=== PATIENT | female | born 1955 | race Caucasian/White ===

== ENCOUNTER → 2016-08-07 | Outpatient (CLI) | payer BC ==
--- NOTE | 2016-08-07 11:45 | REP ---
Clinical: Pelvic pain. Technique: Transabdominal pelvic ultrasound followed by transvaginal examination for better evaluation of the adnexa. Findings: History of prior hysterectomy and possibly oophorectomy. Uterus and ovaries not visualized. No pelvic fluid, collection or mass lesion. Bladder is unremarkable and measures 7.7 x 7.0 x 5.1 cm Impression: No pelvic fluid, collection or mass lesion. Evidence for prior hysterectomy and likely oophorectomy. Signed by Patrick Ibarra MD 08/07/2016 11:37 A
== END ==
LOC: M RAD 09:42
PROVIDERS: ATTEND Nurse Practitioner Adult Health
DX: N89.8 Other specified noninflammatory disorders of vagina (principal); R10.2 Pelvic and perineal pain

== ENCOUNTER → 2017-01-16 | Outpatient (CLI) | payer OTHER ==
--- NOTE | 2017-01-16 09:21 | REP ---
BILATERAL DIGITAL SCREENING MAMMOGRAM: 01/16/2017 CLINICAL HISTORY: New baseline mammogram, prior over 10 years old. She has no current complaint, personal or family history of breast cancer. FINDINGS: Standard two-view mammography performed. The breast parenchyma show only a few scattered fibroglandular elements and are largely fatty replaced. In the 6-o'clock position of the right breast is a slightly irregular shaped nodule, about 5 mm. There are no abnormal calcifications. There are no other significant findings, dominant mass, architectural distortion, clustered microcalcification, skin thickening or other secondary signs of malignancy. IMPRESSION: BIRADS ACR category 0, incomplete, needs additional imaging evaluation. I would recommend spot magnification right CC and true MLO views of the small nodular tissue focus 6 o'clock position right breast and ultrasound should be scheduled. Any other imaging should be performed at the discretion of the reviewing radiologist. A. Negative x-ray reports should not delay biopsy if a dominant or clinically suspicious mass is present. B. Four to eight percent of cancers are not identified by x-ray. C. Adenosis and dense breasts may obscure an underlying neoplasm. The patient states that she/he has not had a clinical breast exam in over a year. The patient letter being requested is M0 BI-RADS/ACR category 0 mammogram, incomplete. Additional imaging and/or prior images are needed before a final assessment can be assigned. This mammogram was interpreted with the aid of an FDA-approved computer-aided detection system.
== END ==
LOC: M WHC 08:13
PROVIDERS: ATTEND Family Medicine
DX: R92.2 Inconclusive mammogram (principal)

== ENCOUNTER → 2017-01-18 | Outpatient (CLI) | payer BC, OTHER ==
--- NOTE | 2017-01-18 20:47 | REP ---
Left breast ultrasound: 01/18/2017 Comparison diagnostic digital mammogram 01/18/2017, screening mammogram 01/16/2017. Clinical history: Neodensity approximately 6-o'clock position right breast on screening mammogram. Sonographic evaluation of the right breast in the 5-o'clock to 7-o'clock position as requested shows underlying heterogeneous echogenic fatty parenchyma. The 6-o'clock position demonstrates a small irregularly shaped hypoechoic focus of 5 x 2 x 5 mm; showed no color flow within it. There are no other findings. Impression: 1. There is a small cyst or partially dilated duct without filling defect 6 o'clock position right breast corresponding to the ultrasound finding. Please see mammogram report this date for final assessment and recommendation. Signed by Nitesh Mejia MD 01/18/2017 10:36 P
--- NOTE | 2017-01-18 20:49 | REP ---
DIGITAL DIAGNOSTIC RIGHT MAMMOGRAM: 01/18/2017. Comparison: Right breast ultrasound today, screening mammogram 01/16/2017. Clinical history: Neodensity 6-o'clock position right breast. Findings: Spot magnified CC, MLO and true lateral views for a total of four views are provided. At the 6 o'clock position a vague slightly irregular nodule is noted about 5.3 mm. It does not have any associated calcifications. There are no other findings. The breast ultrasound showed a 5.2 x 5.1 x 2 mm irregular shaped cyst or dilated duct, but without filling defects. It is 2.8 cm posterior to the nipple by ultrasound. Impression: 1. BIRADS ACR category 2, benign. Benign finding, with ultrasound confirming that the isolated density on mammography is a cyst or short dilated duct without filling defect. I do not see evidence of malignancy. 2. Recommend followup annual mammography 1 year. BI-RADS/ACR category 2 mammogram. Benign finding(s). Routine annual screening mammography (for women over age 40). This mammogram was interpreted with the aid of an FDA-approved computer-aided detection system. A. Negative x-ray reports should not delay biopsy if a dominant or clinically suspicious mass is present. B. Four to eight percent of cancers are not identified by x-ray. C. Adenosis and dense breasts may obscure an underlying neoplasm The patient states she/he has not had a clinical breast exam in over a year. The patient letter being requested is M1. Signed by Nitesh Mejia MD 01/18/2017 10:37 P
== END ==
LOC: M RAD 13:53
PROVIDERS: ATTEND Family Medicine
DX: R92.8 Other abnormal and inconclusive findings on diagnostic imaging of breast (principal)
CPT/HCPCS: 76642; G0206

== ENCOUNTER → 2017-07-12 | Outpatient (CLI) | payer OTHER | LOC: M EKG 10:54 | DX: Z01.810 Encounter for preprocedural cardiovascular examination (principal); R00.1 Bradycardia, unspecified; I49.9 Cardiac arrhythmia, unspecified; I10 Essential (primary) hypertension; M23.231 Derangement of other medial meniscus due to old tear or injury, right knee | CPT/HCPCS: 93005 ==

== ENCOUNTER → 2017-07-16 | Outpatient (REF) | payer OTHER ==
[2017-07-16 12:54] LABS: ALBUMIN 3.8 GM/DL (3.2-5.2); ALBUMIN/GLOBULIN RATIO 1.23 (1.00-1.93); ALKALINE PHOSPHATASE 110 U/L (45-117); ALT/SGPT 23 U/L (12-78); ANION GAP 7 MEQ/L (8-16); AST/SGOT 20 U/L (7-37); BILIRUBIN,TOTAL 0.3 MG/DL (0.2-1.0); BLOOD UREA NITROGEN 22 MG/DL (7-18); CARBON DIOXIDE LEVEL 27 MEQ/L (21-32); CHLORIDE LEVEL 108 MEQ/L (98-107); CREATININE FOR GFR 0.94 MG/DL (0.55-1.30); GLOMERULAR FILTRATION RATE > 60.0 (>45); GLUCOSE, FASTING 95 MG/DL (70-100); POTASSIUM SERUM 4.5 MEQ/L (3.5-5.1); SODIUM LEVEL 142 MEQ/L (136-145); TOTAL 25(OH) VITAMIN D 31.2 NG/ML (30.0-100.0); TOTAL PROTEIN 6.9 GM/DL (6.4-8.2)
== END ==
LOC: M SFHCPLAZ 08:41
DX: M05.79 Rheumatoid arthritis with rheumatoid factor of multiple sites without organ or systems involvement (principal); I10 Essential (primary) hypertension; E55.9 Vitamin D deficiency, unspecified

== ENCOUNTER → 2018-04-10 | Outpatient (CLI) | payer MEDICARE ==
[2018-04-10 11:33] LABS: ANION GAP 6 MEQ/L (8-16); BLOOD UREA NITROGEN 33 MG/DL (7-18); CARBON DIOXIDE LEVEL 29 MEQ/L (21-32); CHLORIDE LEVEL 106 MEQ/L (98-107); CREATININE FOR GFR 1.17 MG/DL (0.55-1.30); GLOMERULAR FILTRATION RATE 49.6 (>45); GLUCOSE, FASTING 92 MG/DL (70-100); POTASSIUM SERUM 4.6 MEQ/L (3.5-5.1); SODIUM LEVEL 141 MEQ/L (136-145)
== END ==
LOC: M LAB 10:20
DX: Z01.818 Encounter for other preprocedural examination (principal); G56.02 Carpal tunnel syndrome, left upper limb
CPT/HCPCS: 80048

== ENCOUNTER → 2018-08-08 | Outpatient (REF) | payer OTHER ==
[2018-08-08 16:34] LABS: CALCIUM LEVEL 8.9 MG/DL (8.8-10.2); CREATININE FOR GFR 1.03 MG/DL (0.55-1.30); GLOMERULAR FILTRATION RATE 57.4 (>45); POTASSIUM SERUM 4.2 MEQ/L (3.5-5.1)
[2018-08-08 16:43] LABS: TOTAL 25(OH) VITAMIN D 34.8 NG/ML (30.0-100.0)
[2018-08-08 16:48] LABS: MALB URINE SIEMENS 16.6 MG/L; MAU/CREAT RATIO 10.7 MCG/MG (0.0-30.0)
== END ==
LOC: M SFHCPLAZ 13:32
PROVIDERS: ATTEND Family Medicine
DX: I10 Essential (primary) hypertension (principal); E55.9 Vitamin D deficiency, unspecified

== ENCOUNTER → 2018-08-11 | Outpatient (CLI) | payer OTHER ==
--- NOTE | 2018-08-12 08:00 | REPMRS ---
Patient History The patient states she has not had a clinical breast exam in over a year. Family history of colorectal cancer at age 50 in mother. Digital Woman Screen Mammo: August 11, 2018 - Exam #: [id number] Bilateral CC and MLO view(s) were taken. Technologist: Sonia Varghese, Technologist Prior study comparison: January 18, 2017, right breast digital mammo diagnostic unilateral, performed at [facility]. January 16, 2017, digital woman screen mammo performed at [facility]. FINDINGS: The breast tissue is almost entirely fat. The previously noted 5 mm nodule corresponding to a cyst on ultrasound is again seen in the right breast unchanged. There are normal lymph nodes visible on the left. There has been no change in the appearance of the mammogram from the prior studies. There is no interval development of dominant mass, architectural distortion, or clustered microcalcification typical of malignancy. 3-D tomosynthesis shows no additional findings. Assessment: BI-RADS/ACR category 2 mammogram. Benign Findings. Recommendation Routine screening mammogram of both breasts in 1 year (for women over age 40). This patient's Lifetime Breast Cancer RIsk is estimated at 6.0 %. This mammogram was interpreted with the aid of an FDA-approved computer-aided dectection system. Electronically Signed By: Selvin Fuentes MD 08/12/18 [id number]
== END ==
LOC: M WHC 08:37
PROVIDERS: ATTEND Family Medicine
DX: Z12.31 Encounter for screening mammogram for malignant neoplasm of breast (principal); R92.8 Other abnormal and inconclusive findings on diagnostic imaging of breast

== ENCOUNTER → 2018-09-16 | Outpatient (CLI) | payer OTHER ==
[~2018-09-16] MED LIST: DULO1CAP3 PO; GABA600T4 PO; HYDR200T3 PO; LISI20TA3 PO; MELO15TA28 PO; VITA50005 PO
--- NOTE | 2018-09-16 15:46 | REP ---
Clinical: Primary osteoarthritis. Technique: AP, lateral, bilateral oblique views of the right and left hand. Findings: The right hand is essentially normal for age with focal advanced osteoarthritic change noted at the fifth distal interphalangeal joint. Findings include subchondral sclerosis and subtle cystic change along with joint space narrowing and gull-wing deformity with marginal spurring. The left hand demonstrates essentially age-related changes without significant focal osteoarthritic changes appreciated. Impression: Focal advanced osteoarthritic changes at the right fifth DIP joint. Otherwise symmetric relatively age-appropriate bilateral hand radiographs. Electronically Signed by Patrick Ibarra MD 09/16/2018 03:37 P
[2018-09-16 16:15] LABS: BASO # 0.1 10^3/uL (0.0-0.2); BASO % 1.1 % (0.0-1.0); EOS # 0.5 10^3/uL (0.0-0.50); HEMOGLOBIN 13.8 g/dl (12.0-15.5); LYMPH # 2.4 10^3/uL (1.5-4.5); LYMPH % 23.1 % (24.0-44.0); MEAN CORPUSCULAR HEMOGLOBIN 27.8 pg (27.0-33.0); MEAN CORPUSCULAR HGB CONC 32.1 g/dl (32.0-36.5); MEAN CORPUSCULAR VOLUME 86.5 fl (80.0-96.0); MONO # 1.1 10^3/uL (0.0-0.8); NEUTROPHILS # 6.1 10^3/uL (1.8-7.7); NEUTROPHILS % 59.4 % (36.0-66.0); PLATELET COUNT, AUTOMATED 312 10^3/uL (150-450); RED BLOOD COUNT 4.97 10^6/uL (4.00-5.40); WHITE BLOOD COUNT 10.3 10^3/uL (4.0-10.0)
[2018-09-16 16:16] LABS: ALBUMIN 3.9 GM/DL (3.2-5.2); BILIRUBIN,TOTAL 0.2 MG/DL (0.2-1.0); C REACTIVE PROTEIN QUANTITATIV 0.48 MG/DL (0.00-0.30); CALCIUM LEVEL 9.5 MG/DL (8.8-10.2); CREATININE FOR GFR 1.14 MG/DL (0.55-1.30); GLOMERULAR FILTRATION RATE 51.1 (>45); POTASSIUM SERUM 4.3 MEQ/L (3.5-5.1); TOTAL PROTEIN 7.3 GM/DL (6.4-8.2)
[2018-09-16 18:15] LABS: ERYTHROCYTE SEDIMENTATION RATE 6 mm/hr (0-30)
== END ==
LOC: M LAB 15:16
PROVIDERS: ATTEND Internal Medicine Rheumatology
DX: M06.9 Rheumatoid arthritis, unspecified (principal)

== ENCOUNTER → 2018-09-16 | Outpatient (REF) | payer OTHER | LOC: M SFHCPLAZ 14:39 | PROVIDERS: ATTEND Internal Medicine Rheumatology | DX: Z53.9 Procedure and treatment not carried out, unspecified reason (principal); M06.9 Rheumatoid arthritis, unspecified ==

== ENCOUNTER 2018-09-22 09:44 | Day surgery (SDC) | payer OTHER ==
[~2018-09-22] VITALS: Ht 152.4 cm; Wt 90.0 kg
[~2018-09-22 09:44] MED LIST changes: +NS 1,000 ML IV SCH
--- NOTE | 2018-09-22 11:25 | ROOR ---
Patient Name: Enid Weston Procedure Date: 09/22/2018 10:56 AM Date of : 1955 Age: 63 Room: [facility] Gender: Female Note Status: Finalized Procedure: Total Colonoscopy to Cecum + Biopsy Polypectomy + ileoscopy Indications: Colon cancer screening in patient at increased risk: Colorectal cancer in mother Providers: Darryl Vilchis MD Referring MD: Vianey Hendrix MD Requesting Provider: Medicines: Monitored Anesthesia Care Complications: No immediate complications. Procedure: Pre-Anesthesia Assessment: - The heart rate, respiratory rate, oxygen saturations, blood pressure, adequacy of pulmonary ventilation, and response to care were monitored throughout the procedure. The Colonoscope was introduced through the anus and advanced to the cecum, identified by appendiceal orifice and ileocecal valve. The colonoscopy was performed without difficulty. The patient tolerated the procedure well. The quality of the bowel preparation was excellent. Findings: The perianal and digital rectal examinations were normal. Non-bleeding internal hemorrhoids were found during retroflexion. The hemorrhoids were small and Grade I (internal hemorrhoids that do not prolapse). A small polyp was found at 10 cm proximal to the anus. The polyp was sessile. The polyp was removed with a jumbo cold forceps. Resection and retrieval were complete. The exam was otherwise without abnormality on direct and retroflexion views. The terminal ileum appeared normal. Impression: - Non-bleeding internal hemorrhoids. - One small polyp at 10 cm proximal to the anus, removed with a jumbo cold forceps. Resected and retrieved. - The examination was otherwise normal on direct and retroflexion views. - The examined portion of the ileum was normal. - The exam was otherwise normal to the cecum. Recommendation: - Patient has a contact number available for emergencies. The signs and symptoms of potential delayed complications were discussed with the patient. Return to normal activities tomorrow. Written discharge instructions were provided to the patient. - High fiber diet. - Discharge patient to home. - Continue present medications. - Await pathology results. - Telephone GI clinic for pathology results in 1 week. - Repeat colonoscopy in 5 years for surveillance based on pathology results. - Return to referring physician. - Check Portal Online for Path Results.([email or web address]) - The findings and recommendations were discussed with the patient's family. Darryl Vilchis MD Darryl Vilchis MD 09/22/2018 11:24:44 AM Electronically signed by Darryl Vilchis MD Number of Addenda: 0 Note Initiated On: 09/22/2018 10:56 AM Estimated Blood Loss: Estimated blood loss: none.
[2018-09-22 11:45] VITALS: BP 131/90
== END 2018-09-22 11:53 | disposition home or self-care (01) ==
LOC: M OPP 09:44
PROVIDERS: ATTEND Internal Medicine Gastroenterology
DX: K64.0 First degree hemorrhoids (principal); K63.5 Polyp of colon; Z12.11 Encounter for screening for malignant neoplasm of colon; Z80.0 Family history of malignant neoplasm of digestive organs

== ENCOUNTER → 2019-04-03 | Outpatient (REF) | payer MEDICARE, MEDICAID ==
[~2019-04-03] MED LIST changes: -DULO1CAP3 PO; +DULO1CAP6 PO; +LISI20TA20 PO; -LISI20TA3 PO; -NS 1,000 ML IV SCH
[2019-04-03 18:55] LABS: CALCIUM LEVEL 9.2 MG/DL (8.8-10.2); CREATININE FOR GFR 1.15 MG/DL (0.55-1.30); GLOMERULAR FILTRATION RATE 50.4 (>45); POTASSIUM SERUM 4.3 MEQ/L (3.5-5.1)
== END ==
LOC: M SFHCCLAY 10:55
PROVIDERS: ATTEND Family Medicine
DX: R94.4 Abnormal results of kidney function studies (principal)

== ENCOUNTER → 2019-06-22 | Outpatient (REF) | payer MEDICARE, MEDICAID ==
[2019-06-22 12:15] LABS: CALCIUM LEVEL 9.5 MG/DL (8.8-10.2); CREATININE FOR GFR 1.04 MG/DL (0.55-1.30); GLOMERULAR FILTRATION RATE 56.6 (>45); POTASSIUM SERUM 4.6 MEQ/L (3.5-5.1)
== END ==
LOC: M SFHCPLAZ 10:08
PROVIDERS: ATTEND Family Medicine
DX: I12.9 Hypertensive chronic kidney disease with stage 1 through stage 4 chronic kidney disease, or unspecified chronic kidney disease (principal); N18.3 Chronic kidney disease, stage 3 (moderate)
CPT/HCPCS: 36415; 80048; G0463

== ENCOUNTER → 2019-12-08 | Outpatient (CLI) | payer MEDICARE, MEDICAID ==
--- NOTE | 2019-12-08 15:03 | REPPI ---
REASON: Chronic cough. The latest prior for comparison is 10/05/2014. COMPARISON: No priors. FINDINGS: The superior mediastinal structures are midline. The cardiac silhouette is unremarkable in size, shape, and position. The diaphragmatic surfaces of the lungs are regular, and the costophrenic angles are clear. The pulmonary miranda are clear. The imaged osseous structures are intact. IMPRESSION: There is no acute cardiopulmonary disease. Since the patient is experiencing a chronic cough. CT examination of the chest is warranted. Electronically Signed by Aristides Davis DO 12/08/2019 05:27 P
== END ==
LOC: M PLAIMG 10:51
PROVIDERS: ATTEND Family Medicine
DX: R05 Cough (principal)
CPT/HCPCS: 36415; 71046; 80048; G0463

== ENCOUNTER → 2019-12-08 | Outpatient (REF) | payer MEDICARE, MEDICAID ==
[2019-12-08 14:30] LABS: CALCIUM LEVEL 9.1 MG/DL (8.8-10.2); CREATININE FOR GFR 1.09 MG/DL (0.55-1.30); GLOMERULAR FILTRATION RATE 53.6 (>45); POTASSIUM SERUM 4.1 MEQ/L (3.5-5.1)
== END ==
LOC: M SFHCPLAZ 10:50
PROVIDERS: ATTEND Family Medicine
DX: I12.9 Hypertensive chronic kidney disease with stage 1 through stage 4 chronic kidney disease, or unspecified chronic kidney disease (principal); N18.3 Chronic kidney disease, stage 3 (moderate)

== ENCOUNTER 2020-02-24 10:45 | Inpatient (IN) | payer MEDICARE, MEDICAID ==
[~2020-02-24] VITALS: Ht 152.4 cm; Wt 87.0 kg
[2020-03-09] MEDS ORDERED: VITA50005 (07:57)
[2020-03-23] VITALS (7 sets, daily range): BP systolic 129–138; BP diastolic 61–66
[2020-03-23] MEDS ORDERED: fentaNYL 100 MCG/2 ML INJECTION (J3010) IV SCH (06:00)
[2020-03-23] MEDS ORDERED: LR 1,000 ML IV ONE (07:00)
[2020-03-23] MEDS ORDERED: ceFAZolin SOD 2 GM in IV 1 EA IV ONE (07:00)
[2020-03-23] MEDS ORDERED: LIDOCAINE 2% 100MG/5ML SDV (FOR ANES.) As Ordered ONE (09:02)
[2020-03-23] MEDS ORDERED: ePHEDrine INJ 50 MG/ML VIAL As Ordered ONE (09:02)
[2020-03-23] MEDS ORDERED: propofoL 500 MG/50 ML VIAL As Ordered ONE ×2 (09:02→09:03)
[2020-03-23] MEDS ORDERED: KETAMINE HCL 200 MG/20 ML VIAL As Ordered ONE (09:03)
[2020-03-23] MEDS ORDERED: MIDAZOLAM INJ 2MG/2ML VIAL (J2250 PER 1MG) As Ordered ONE ×2 (09:03→09:04)
[2020-03-23] MEDS ORDERED: ONDANSETRON 4MG/2ML VIAL As Ordered ONE (09:03)
[2020-03-23] MEDS ORDERED: fentaNYL 100 MCG/2 ML INJECTION (J3010) As Ordered ONE (09:04)
[2020-03-23] MEDS ORDERED: ceFAZolin 1GM VIAL (J0690 PER 500MG) As Ordered ONE (09:23)
[2020-03-23] MEDS ORDERED: TRANEXAMIC ACID 100 MG/ML 10ML VIAL As Ordered ONE (09:23)
[2020-03-23] MEDS ORDERED: EPINEPHrine INJ 1 MG/ML 1ML AMP As Ordered ONE (09:24)
[2020-03-23] MEDS ORDERED: BUPIVACAINE LIPOSOME/PF 1.3% 20ML VIAL (13.3MG/ML)(EXPAREL)(C9290 PER1MG) As Ordered ONE (09:24)
[2020-03-23] MEDS: MIDAZOLAM INJ 2MG/2ML VIAL (J2250 PER 1MG) IV SCH ×2 (09:28→09:32)
[2020-03-23] MEDS ORDERED: dexameTHASONE 10MG/1ML VIAL PRES.FREE (J1100 PER 1MG) ONE (11:10)
[2020-03-23] MEDS ORDERED: LIDOCAINE 1% MDV 20ML VIAL ONE (11:10)
[2020-03-23] MEDS ORDERED: ROPIvacaine 0.5% 30ML INJECTION (J2795 PER 1MG) ONE (11:10)
[2020-03-23] MEDS ORDERED: oxyCODONE 5MG TAB As Ordered ONE (12:03)
[2020-03-23] MEDS: fentaNYL 100 MCG/2 ML INJECTION (J3010) IV PRN ×4 (12:05→12:25)
[2020-03-23] MEDS ORDERED: ONDANSETRON 4MG/2ML VIAL IV PRN ×2 (12:15→12:30)
[2020-03-23] MEDS ORDERED: LR 1,000 ML IV SCH ×2 (12:15→12:30)
[2020-03-23] MEDS ORDERED: MORPHINE 2 MG/ML 1ML VIAL (J2270) IV PRN (12:30)
[2020-03-23] MEDS ORDERED: oxyCODONE 5MG TAB PO PRN (12:30)
[2020-03-23] MEDS ORDERED: MORPHINE 4 MG/ML 1ML VIAL/SYRINGE (J2270) IV PRN (12:30)
[2020-03-23 14:30] LABS: HEMOGLOBIN 12.2 g/dl (12.0-15.5); MEAN CORPUSCULAR HEMOGLOBIN 27.9 pg (27.0-33.0); MEAN CORPUSCULAR HGB CONC 31.3 g/dl (32.0-36.5); MEAN CORPUSCULAR VOLUME 89.2 fl (80.0-96.0); PLATELET COUNT, AUTOMATED 247 10^3/uL (150-450); RED BLOOD COUNT 4.37 10^6/uL (4.00-5.40); WHITE BLOOD COUNT 9.6 10^3/uL (4.0-10.0)
[2020-03-23 14:54] LABS: ALBUMIN 3.1 GM/DL (3.2-5.2); ALT/SGPT 28 U/L (12-78); BILIRUBIN,TOTAL 0.2 MG/DL (0.2-1.0); BLOOD UREA NITROGEN 22 MG/DL (7-18); CALCIUM LEVEL 8.6 MG/DL (8.8-10.2); CARBON DIOXIDE LEVEL 28 MEQ/L (21-32); CHLORIDE LEVEL 106 MEQ/L (98-107); CREATININE FOR GFR 0.95 MG/DL (0.55-1.30); GLOMERULAR FILTRATION RATE > 60.0 (>45); GLUCOSE, FASTING 127 MG/DL (70-100); POTASSIUM SERUM 4.3 MEQ/L (3.5-5.1); SODIUM LEVEL 136 MEQ/L (136-145); TOTAL PROTEIN 6.2 GM/DL (6.4-8.2)
[2020-03-23] MEDS ORDERED: **hydrALAZINE** 10 MG TAB PO PRN (16:45)
--- NOTE | 2020-03-23 17:07 | HPE ---
DATE OF ADMISSION: 03/23/2020 ATTENDING PHYSICIAN: Casey Bass MD CHIEF COMPLAINT: Right knee pain and stiffness. HISTORY OF PRESENT ILLNESS: The patient is a pleasant 65-year-old female with progressively worsening right knee pain and stiffness. She failed to improve with conservative measures. She continued to have symptoms with weight beating activities and activities of daily living. She consented for an elective right total knee arthroplasty with Dr. Bass for continued symptoms. Medical optimization pending with Dr. Hendrix. CURRENT MEDICATIONS: Lisinopril/hydrochlorothiazide 20/25 mg daily, Plaquenil 200 mg daily, vitamin D 50,000 units daily, gabapentin 600 mg 3 x daily, Cymbalta 60 mg daily. ALLERGIES: COMPAZINE. CHRONIC MEDICAL CONDITIONS: Rheumatoid arthritis, hypertension, fibromyalgia, anxiety, depression. PAST SURGICAL HISTORY: Tonsillectomy, partial hysterectomy, right foot open reduction, internal fixation, cholecystectomy, right knee arthroscopy. SOCIAL HISTORY: The patient is a former smoker and occasionally consumes alcohol. REVIEW OF SYSTEMS: The patient denies fevers, chills, nausea, vomiting or diarrhea. She denies chest pain, shortness of breath, lightheadedness, dizziness or headaches. She denies any abdominal pain. She denies any recent upper respiratory or urinary tract infection symptoms. She does continue to have right knee pain with weightbearing activities and activities of daily living. PHYSICAL EXAMINATION: General: Well nourished, well developed female in no apparent distress. She is alert and oriented and cooperative. Mood and affect are appropriate. Vital signs: Height 61 inches, weight 192 pounds, temperature 96.7. Blood pressure 126/64, heart rate 64, respirations 17. Neck: Supple without lymphadenopathy. Heart: Regular rate and rhythm. Lungs: Clear to auscultation bilaterally. Breathing is regular and unlabored. Abdomen: Soft and nontender to palpations. Bowel sounds are present. Musculoskeletal: Right knee exhibits no edema or ecchymosis. Skin is intact. The patient is walking with a slight limp favoring the right lower extremity. She is not using any assistive devices for ambulation. The patient can extend fully and flex to 110 degrees. Right lower extremity strength is 5/5. No hip irritability is elicited with range of motion testing. The patient's calf is soft, nontender to palpation without evidence f deep venous thrombosis (DVT). She is neurovascularly intact distally. LABORATORY DATA: Electrocardiogram (EKG): Sinus rhythm. Borderline intraventricular conduction delay. Right knee x-ray notable for end-stage degenerative changes. Chest x-ray: No acute cardiopulmonary disease. Complete blood count (CBC): WBC is 8.9, RBC is 4.31, hemoglobin 12.5, hematocrit 38.8, platelets 248. Erythrocyte sedimentation rate 18. Prothrombin time 13, INR 0.96. Complete metabolic profile, fasting glucose 93, BUN 18, creatinine 1.14, glomerular filtration rate (GFR) 50.9. Sodium 138, potassium 4.1, chloride 104, Co2 26, anion gap 8, calcium 9.6, AST 25, ALT 33, alkaline phosphatase elevated at 118. Total bilirubin 0.4, total protein 7.0, albumin 3.5, albumin globulin ratio decreased at 1. C-reactive protein elevated at 0.86. IMPRESSION: Right knee osteoarthritis with x-rays notable for end-stage degenerative changes. PLAN: The patient has consented for an elective right total knee arthroplasty with Dr. Bass for her continued symptoms. Medical optimization pending with Dr. Hendrix. The patient will be n.p.o. after midnight, the night prior to surgery. She will follow her primary care managers recommendations on how to take daily medications. BRYNN
--- NOTE | 2020-03-23 17:13 | IPN ---
DATE: 03/23/2020 SUBJECTIVE: Patient seen and examined. She wishes to go ahead with a right knee arthroplasty. She understands the nature of this, the risks of bleeding, infection, damage to nerves, vessels, persistent pain, wear, loosening, blood clots, medical problems, among others. Preop clearance obtained. BRYNN
--- NOTE | 2020-03-23 17:16 | RO ---
DATE OF OPERATION: 03/23/2020 PREOPERATIVE DIAGNOSIS: Right knee osteoarthritis. POSTOPERATIVE DIAGNOSIS: Right knee osteoarthritis. PROCEDURE: Right total knee arthroplasty using an ATTUNE rotating platform, posterior stabilized, size 2 femur, size 2 tibia, 14 polyethylene, 29 patellar button. SURGEON: Casey Bass M.D. NUCLEAR MEDICINE OFFICER: Mike Pritchett. ANESTHESIA: Spinal, followed by general. ESTIMATED BLOOD LOSS: Less than 50. COMPLICATIONS: None. INDICATIONS: This is a 65-year-old with gradually worsening right knee pain who wished to go ahead with a knee replacement. DESCRIPTION OF PROCEDURE: The patient was taken to the operating room and placed in the supine position after spinal anesthesia was induced. The right lower extremity was prepped and draped in the usual sterile fashion. A timeout was performed and the tourniquet was inflated. I then created a longitudinal incision over the anterior aspect of the knee, at which point they converted her to a general because she was having some sensation. A medial parapatellar arthrotomy was performed per routine. I everted the patella, flexed the knee, and removed some osteophytes. I used the canal initiating reamer on the femoral side, followed by the intramedullary guide set at 5 of valgus and a 9-mm cut. This was pinned into place. The distal femoral cut was made while protecting soft tissues. I then sized the femur to be a 2 and secured the pins in the end of the femur. The 2 cutting block was secured and the remaining cuts were made protecting soft tissues. We then prepared the tibia. I freed up the PCL and placed retractors. We placed the tibial alignment guide at 4-mm off the low side in the appropriate amount of valgus and posterior slope. This was pinned in place and the proximal tibia cut was made. I then used the tank operator to remove soft tissue from either side of the knee and osteophytes and determined that the PCL actually was deficit. So, I decided to go with a posterior stabilized and the box cut was made on the femoral side in the usual fashion with the saw and cutting guide. I then prepared the tibial tray, which was sized to be a 2. This was pinned in place, drilled, broached. Prior to this, I used the spacer blocks and determined the size 12 had excellent stability and alignment in flexion and extension. I had also removed meniscus and osteophytes from either side of the knee. Once the tibia tray was secured to the tibia, I then placed the femoral component size 2, posterior stabilized, and the trial polyethylene size 12 x 2. This was reduced and the knee was put through a range of motion, had excellent stability and range of motion and alignment. Soft tissue balance was excellent. The patella was then free hand cut, removing about 7-mm of bone. I sized it to be a 29, which was then drilled. I drilled the holes in the end of the femur as well. The patellar button was placed, which tracked very nicely. The surgical first assistant prepared the bone cement in the modern technique. I removed the trial components, placed the Exparel in the deep tissues, irrigated copiously, then dried the bony surfaces, and cemented in the tibia, the femur, placed the polyethylene, and then the cemented on the patella. We removed all excess bone cement. I then placed the TXA deep in the wound and then began closing proximally and then irrigated again in the deep tissues. Using #1 initially and then followed by a running Stratafix suture, we obtained a water- tight closure. I then put the knee through a range of motion and she had excellent stability with no clicking or catching. I irrigated again and closed the SQ with 2-0 Vicryl and the skin with isabella. Sterile dressings were applied. The tourniquet had been deflated when the cement was hard. We had removed the patellar clamp once the cement had hardened. Once the sterile dressing was applied, she was taken to the recovery room in stable condition. COMPLICATIONS: There were no known complications. PLAN: The plan will be routine postoperative. The surgical first assistant was instrumental in holding the retractors and mixing the bone cement, and assisting in wound closure. BRYNN
[2020-03-23] MEDS: ceFAZolin SOD 2 GM in IV 1 EA IV SCH (17:30)
[2020-03-23] MEDS: PERCOCET 5MG/325MG TAB PO PRN ×2 (17:30→22:14)
[2020-03-23] MEDS: GABAPENTIN 300 MG CAP PO SCH (19:32)
--- NOTE | 2020-03-23 20:13 | CR.PDOC ---
General Date of Consultation: Mar 23, 2020 Consultation REASON FOR CONSULTATION/CHIEF COMPLAINT: Co-management of medical problems HISTORY OF PRESENT ILLNESS: Mrs. Weston is a 65 year old female with HTN, RA, HLD, here for right total knee by orthopedics. She was seen this afternoon on [address]. When I saw her, she still feels slightly groggy from the anesthesia. Pain is controlled. He last bowel movement was this morning. No difficulty with appetite, and she is ordering lunch now. Denies fever/chills, chest pain, dyspnea, abdominal pain, diarrhea, or dysuria. ALLERGIES: Please see below. HOME MEDICATIONS: Please see below. PAST MEDICAL HISTORY: 1. Hypertension 2. Fibromyalgia 3. Rheumatoid arthritis 4. Depression PAST SURGICAL HISTORY: 1. Tonsillectomy 2. Colonoscopy 3. Cholecystectomy 4. Partial hysterectomy 1991 5. D&C 6. Neuropathy 7. Right knee TKA FAMILY HISTORY: Father: Back and leg problems (slipped disc and polyneuropathy) Mother: DM SOCIAL HISTORY: Tobacco use: Former smoker, quit 13 years ago. Unknown how long smoked for, but 1.5 ppd ETOH: Occasional alcohol Illicit drug use: Denies recreational drugs REVIEW OF SYSTEMS: CONSTITUTIONAL: Denies any fever or chills. Denies lightheadedness or dizziness. ENT: Denies dysphagia. RESPIRATORY: Denies shortness of breath. Denies cough. CARDIOVASCULAR: Denies chest pain. GASTROINTESTINAL: Denies abdominal pain. Denies diarrhea. Denies constipation GENITOURINARY: Denies dysuria. CUTANEOUS: Denies rashes. MUSCULOSKELETAL: Denies muscle weakness. NEUROLOGICAL: Denies neuropathy. Denies paresthesias. HEMATOLOGICAL: Reports easy bruisability PHYSICAL EXAMINATION: VITAL SIGNS: Please see below. GENERAL: Comfortable, in no apparent distress. HEENT: Head normocephalic/atraumatic, EOMI, sclera clear. NECK: Supple RESPIRATORY: Lungs clear to auscultation bilaterally, no rales, wheeze or rhonchi. CARDIOVASCULAR: Regular rate and rhythm. ABDOMEN: Soft, nontender, no guarding or rebound tenderness. Normal bowel sounds. MUSCLE SKELETAL: Arm strength 5 out of 5 NEUROLOGICAL: CN 312 grossly intact, no focal deficits noted. PSYCHOLOGICAL: Normal mood and affect LABORATORY DATA: Please see below. ASSESSMENT/PLAN: 1. Status post right knee TKA Went to surgery on 03/23/2020 Pain medication and anticoagulation per orthopedics 2. Hypertension Blood pressure medications were held prior to surgery We'll restart lisinopril or hydrochlorothiazide tomorrow morning Until tomorrow morning, we will keep the pressure below 160 with hydralazine as needed 3. Neuropathy Restart gabapentin 4. Rheumatoid arthritis We'll check EKG Plan to restart hydroxychloroquine tomorrow morning 5. DVT prophylaxis Rivaroxaban Vital Signs/I&O Vital Signs Date Time Temp Pulse Resp B/P (MAP) Pulse Ox O2 Delivery O2 Flow Rate FiO2 03/23/20 13:45 98.6 55 18 134/64 (87) 98 Nasal Cannula 2.0 Allergies Coded Allergies: prochlorperazine (Verified Allergy, Severe, SEIZURE, 03/23/20) Home Medications Scheduled Duloxetine Hcl (Duloxetine HCl) 60 Mg Cap, 60 MG PO DAILY, (Reported) Ergocalciferol (Vitamin D2) (Vitamin D2) 50,000 Units Cap, QWEEK, (Reported) Gabapentin (Gabapentin) 600 Mg Tab, 600 MG PO TID, (Reported) Hydroxychloroquine Sulfate (Hydroxychloroquine Sulfate) 200 Mg Tab, 200 MG PO DAILY, (Reported) Lisinopril/Hydrochlorothiazide (Lisinopril-Hctz 20-25 mg Tab) 1 Tab Tab, 1 TAB PO DAILY, (Reported) CHRISTOPHER WHITNEY DO Mar 23, 2020 14:40
[2020-03-24 02:00] VITALS: BP 133/64
[2020-03-24] MEDS: ceFAZolin SOD 2 GM in IV 1 EA IV SCH (02:54)
[2020-03-24] MEDS: PERCOCET 5MG/325MG TAB PO PRN ×2 (02:55→08:22)
[2020-03-24 06:00] VITALS: BP 132/63
[2020-03-24] MEDS ORDERED: PERC5TAB12 PO (07:08)
[2020-03-24] MEDS ORDERED: XARE10TA PO (07:08)
[2020-03-24 07:40] LABS: HEMATOCRIT 34.1 % (36.0-47.0); HEMOGLOBIN 10.8 g/dl (12.0-15.5); MEAN CORPUSCULAR HEMOGLOBIN 28.4 pg (27.0-33.0); MEAN CORPUSCULAR HGB CONC 31.7 g/dl (32.0-36.5); MEAN CORPUSCULAR VOLUME 89.7 fl (80.0-96.0); PLATELET COUNT, AUTOMATED 238 10^3/uL (150-450); WHITE BLOOD COUNT 15.2 10^3/uL (4.0-10.0)
[2020-03-24] MEDS: MOM 30ML SUSPENSION UDC PO SCH (08:17)
[2020-03-24] MEDS: MIRALAX *UNIT DOSE* 17GM PACKET PO SCH (08:17)
[2020-03-24] MEDS: hydroCHLOROthiazide 25 MG TAB PO SCH (08:18)
[2020-03-24] MEDS: HYDROXYCHLOROQUINE 200 MG TAB PO SCH (08:18)
[2020-03-24] MEDS: GABAPENTIN 300 MG CAP PO SCH ×3 (08:18→19:25)
[2020-03-24] MEDS: DULoxetine 30 MG CAP (CYMBALTA) PO SCH (08:19)
[2020-03-24] MEDS: lisinopriL 20 MG TAB PO SCH (08:21)
[2020-03-24] MEDS ORDERED: FLUBLOK(EGG FREE)(QUAD)INFLUENZA VACC 0.5ML SYRINGE 18YRS & OLDER IM ONE (09:00)
[2020-03-24 10:00] VITALS: BP 133/63
[2020-03-24 14:00] VITALS: BP 149/83
[2020-03-24] MEDS: ACETAMINOPHEN TAB 650MG DOSE (2X325MG) PO PRN (16:27)
[2020-03-24] MEDS: RIVAROXABAN 10 MG TAB (XARELTO) PO SCH (16:27)
--- NOTE | 2020-03-24 19:36 | ECGEPIP ---
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
[2020-03-24 22:00] VITALS: BP 135/58
[2020-03-25] MEDS: ACETAMINOPHEN TAB 650MG DOSE (2X325MG) PO PRN ×2 (00:45→08:53)
[2020-03-25] MEDS: PERCOCET 5MG/325MG TAB PO PRN ×2 (02:52→10:23)
[2020-03-25 06:00] VITALS: BP 129/60
[2020-03-25 06:15] LABS: HEMATOCRIT 34.6 % (36.0-47.0); HEMOGLOBIN 10.9 g/dl (12.0-15.5); MEAN CORPUSCULAR HEMOGLOBIN 28.6 pg (27.0-33.0); MEAN CORPUSCULAR HGB CONC 31.5 g/dl (32.0-36.5); MEAN CORPUSCULAR VOLUME 90.8 fl (80.0-96.0); PLATELET COUNT, AUTOMATED 231 10^3/uL (150-450); RED BLOOD COUNT 3.81 10^6/uL (4.00-5.40); WHITE BLOOD COUNT 10.7 10^3/uL (4.0-10.0)
[2020-03-25] MEDS: hydroCHLOROthiazide 25 MG TAB PO SCH (08:52)
[2020-03-25] MEDS: DULoxetine 30 MG CAP (CYMBALTA) PO SCH (08:53)
[2020-03-25] MEDS: MOM 30ML SUSPENSION UDC PO SCH (08:53)
[2020-03-25] MEDS: lisinopriL 20 MG TAB PO SCH (08:53)
[2020-03-25] MEDS: MIRALAX *UNIT DOSE* 17GM PACKET PO SCH (08:53)
[2020-03-25] MEDS: GABAPENTIN 300 MG CAP PO SCH ×3 (08:53→21:21)
[2020-03-25] MEDS: HYDROXYCHLOROQUINE 200 MG TAB PO SCH (08:54)
[2020-03-25 14:00] VITALS: BP 145/81
[2020-03-25] MEDS ORDERED: ACETAMINOPHEN 500 MG TAB PO SCH (14:00)
[2020-03-25] MEDS: RIVAROXABAN 10 MG TAB (XARELTO) PO SCH (16:59)
[2020-03-25 19:33] VITALS: BP 133/83
[2020-03-25] MEDS: ACETAMINOPHEN 500 MG TAB PO SCH (21:22)
[2020-03-25] MEDS: traMADol 50 MG TAB PO PRN (23:35)
[2020-03-26 05:18] LABS: HEMATOCRIT 36.3 % (36.0-47.0); HEMOGLOBIN 11.3 g/dl (12.0-15.5); MEAN CORPUSCULAR HEMOGLOBIN 28.5 pg (27.0-33.0); MEAN CORPUSCULAR HGB CONC 31.1 g/dl (32.0-36.5); MEAN CORPUSCULAR VOLUME 91.4 fl (80.0-96.0); PLATELET COUNT, AUTOMATED 237 10^3/uL (150-450); RED BLOOD COUNT 3.97 10^6/uL (4.00-5.40); WHITE BLOOD COUNT 11.3 10^3/uL (4.0-10.0)
[2020-03-26] MEDS: ACETAMINOPHEN 500 MG TAB PO SCH ×2 (05:37→12:51)
[2020-03-26 06:00] VITALS: BP 136/70
[2020-03-26] MEDS: MIRALAX *UNIT DOSE* 17GM PACKET PO SCH (09:00)
[2020-03-26] MEDS: MOM 30ML SUSPENSION UDC PO SCH (09:15)
[2020-03-26 09:16] VITALS: BP 134/58
[2020-03-26] MEDS: lisinopriL 20 MG TAB PO SCH (09:16)
[2020-03-26] MEDS: hydroCHLOROthiazide 25 MG TAB PO SCH (09:16)
[2020-03-26] MEDS: GABAPENTIN 300 MG CAP PO SCH (09:16)
[2020-03-26] MEDS: HYDROXYCHLOROQUINE 200 MG TAB PO SCH (09:16)
[2020-03-26] MEDS: DULoxetine 30 MG CAP (CYMBALTA) PO SCH (09:16)
[2020-03-26] MEDS ORDERED: TRAM50TA2 PO (11:11)
[2020-03-26] MEDS ORDERED: ACET-841 PO (11:11)
[2020-03-26] MEDS ORDERED: XARE10TA PO (11:11)
[2020-03-26] MEDS: traMADol 50 MG TAB PO PRN (12:51)
--- NOTE | 2020-03-28 10:13 | REP ---
RIGHT KNEE TWO-VIEWS HISTORY: Arthroplasty. TECHNIQUE: AP and lateral views of the right knee are performed. FINDINGS: Prosthetic components are seen in the distal femur and proximal tibia. Osseous structures are intact and well aligned. Metallic skin isabella are seen anteriorly. MTDD
--- NOTE | 2020-03-30 15:50 | DS ---
DATE OF ADMISSION: 03/23/2020 DATE OF DISCHARGE: 03/26/2020 ATTENDING PHYSICIAN: Dr. Casey Bass ADMITTING DIAGNOSIS: Right knee osteoarthritis. OTHER DIAGNOSES: 1. Rheumatoid arthritis. 2. Hypertension. 3. Fibromyalgia. 4. Anxiety. 5. Depression. DISCHARGE DIAGNOSIS: Right osteoarthritis, status post right total knee arthroplasty. HISTORY: The patient is a 65-year-old female with progressively worsening right knee pain and stiffness. She failed to improve with conservative measures. She continued to have symptoms with weightbearing activities and activities of daily living. She consented for an elective right total knee arthroplasty with Dr. Bass for her continued symptoms. OPERATION PERFORMED: Right total knee arthroplasty. HOSPITAL COURSE: The patient underwent a right total knee arthroplasty under spinal anesthesia followed by general anesthesia. Surgery was uneventful, and her hospital course was without complication. She was up with physical therapy per their protocol, weightbearing as tolerated on the right lower extremity. Patient was discharged on oral pain medications and will resume her preoperative medications and diet. She will use her thromboembolic deterrent stockings and take her anticoagulant postoperatively to prevent deep venous thrombosis. Patient will followup in our office in 12-14 days for a wound check and staple removal. She is encouraged to contact our office sooner if there is any increase in pain, redness, drainage, numbness, or tingeing in the extremity, fever greater than 101 degrees, or any other concerns. Please see medical record for additional details. MTDD
== END 2020-03-26 13:15 | disposition home health service (06) | DRG 470 ==
LOC: M OR 03-23 08:13 → M MS5PR 03-23 13:15
PROVIDERS: ADMIT Orthopaedic Surgery; ATTEND Orthopaedic Surgery
PROC: 0SRC0J9 Replacement of Right Knee Joint with Synthetic Substitute, Cemented, Open Approach (ICD-10-PCS; principal; 2020-03-23 10:15)
DX: M17.11 Unilateral primary osteoarthritis, right knee (principal); M06.9 Rheumatoid arthritis, unspecified; I10 Essential (primary) hypertension; M79.7 Fibromyalgia; F41.9 Anxiety disorder, unspecified; R26.89 Other abnormalities of gait and mobility; F32.9 Major depressive disorder, single episode, unspecified; Z90.49 Acquired absence of other specified parts of digestive tract; Z87.81 Personal history of (healed) traumatic fracture; Z87.891 Personal history of nicotine dependence; Z79.899 Other long term (current) drug therapy; Z88.8 Allergy status to other drugs, medicaments and biological substances

== ENCOUNTER → 2020-02-26 | Outpatient (REF) | payer MEDICARE, MEDICAID ==
[~2020-02-26] MED LIST changes: +ACET-841 PO; +PERC5TAB12 PO; +TRAM50TA2 PO; +VITA50005; +XARE10TA PO
[2020-02-26 16:56] LABS: BASO # 0.1 10^3/uL (0.0-0.2); BASO % 0.9 % (0.0-1.0); EOS # 0.5 10^3/uL (0.0-0.5); EOS % 5.4 % (0.0-3.0); HEMATOCRIT 38.8 % (36.0-47.0); HEMOGLOBIN 12.5 g/dl (12.0-15.5); LYMPH # 2.4 10^3/uL (1.5-5.0); LYMPH % 27.4 % (24.0-44.0); MEAN CORPUSCULAR HGB CONC 32.2 g/dl (32.0-36.5); MONO % 11.1 % (0.0-5.0); NEUTROPHILS # 4.9 10^3/uL (1.5-8.5); NEUTROPHILS % 54.8 % (36.0-66.0); PLATELET COUNT, AUTOMATED 248 10^3/uL (150-450); RED BLOOD COUNT 4.31 10^6/uL (4.00-5.40); WHITE BLOOD COUNT 8.9 10^3/uL (4.0-10.0)
[2020-02-26 17:38] LABS: ERYTHROCYTE SEDIMENTATION RATE 18 mm/hr (0-30)
[2020-02-26 19:44] LABS: ALBUMIN 3.5 GM/DL (3.2-5.2); ALT/SGPT 33 U/L (12-78); BILIRUBIN,TOTAL 0.4 MG/DL (0.2-1.0); BLOOD UREA NITROGEN 18 MG/DL (7-18); C REACTIVE PROTEIN QUANTITATIV 0.86 MG/DL (0.00-0.30); CALCIUM LEVEL 9.6 MG/DL (8.8-10.2); CARBON DIOXIDE LEVEL 26 MEQ/L (21-32); CHLORIDE LEVEL 104 MEQ/L (98-107); CREATININE FOR GFR 1.14 MG/DL (0.55-1.30); GLOMERULAR FILTRATION RATE 50.9 (>45); GLUCOSE, FASTING 93 MG/DL (70-100); POTASSIUM SERUM 4.1 MEQ/L (3.5-5.1); RHEUMATOID FACTOR QUANT < 10.0 IU/ML (<15.0); SODIUM LEVEL 138 MEQ/L (136-145)
== END ==
LOC: M LABDRAWC 16:26
PROVIDERS: ATTEND Internal Medicine Rheumatology
DX: M06.9 Rheumatoid arthritis, unspecified (principal)

== ENCOUNTER → 2020-03-18 | Outpatient (CLI) | payer MEDICARE, MEDICAID ==
[2020-03-18 13:30] LABS: INR 0.96
--- NOTE | 2020-03-20 12:09 | ECGEPIP ---
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
--- NOTE | 2020-03-22 13:56 | REP ---
TWO-VIEW CHEST HISTORY: Osteoarthritis right knee preop. TECHNIQUE: Two views of the chest are performed. FINDINGS: There is no acute infiltrate. Both lungs are clear. Heart is normal in size. Mediastinal silhouette is unchanged. There are mild degenerative changes of the spine. IMPRESSION: No evidence of acute pulmonary disease. MTDD
== END ==
LOC: M LAB 12:14
PROVIDERS: ATTEND Orthopaedic Surgery
DX: Z01.818 Encounter for other preprocedural examination (principal); M17.11 Unilateral primary osteoarthritis, right knee; Z20.828 Contact with and (suspected) exposure to other viral communicable diseases
CPT/HCPCS: 36415; 71046; 85610; 93005; C9803; G0463; U0003

== ENCOUNTER → 2020-03-18 | Outpatient (CLI) | payer MEDICARE, MEDICAID | LOC: M LABSMTC 10:55 | PROVIDERS: ATTEND Anesthesiology | DX: Z01.812 Encounter for preprocedural laboratory examination (principal); Z20.828 Contact with and (suspected) exposure to other viral communicable diseases | CPT/HCPCS: C9803; U0003 ==

== ENCOUNTER → 2020-07-01 | Outpatient (CLI) | payer SELFPAY | LOC: M LABSMTC 13:56 | PROVIDERS: ATTEND Pediatrics | DX: Z20.822 Contact with and (suspected) exposure to COVID-19 (principal) ==

== ENCOUNTER → 2020-08-12 | Outpatient (CLI) | payer MEDICARE, MEDICAID ==
--- NOTE | 2020-08-12 14:12 | REP ---
INDICATION: CIGARETTE DEPENDENCE. COMPARISON: Comparison chest x-ray March 18, 2020.. TECHNIQUE: Helical scanning is acquired with at low-dose screening parameters. 3 mm axial images are provided at lung only windows. FINDINGS: Digital preliminary commissary superintendent radiograph is unremarkable. The lung miranda show no evidence of pulmonary nodule or mass lesion. No infiltrate or effusion is seen. There are clips in right upper quadrant and some vascular calcification is noted. There is a hiatal hernia. IMPRESSION: Lung RADS category 1 findings. Repeat screening exam suggested in 1 year. <Electronically signed by Selvin Fuentes > 08/12/20 [id number]
== END ==
LOC: M RAD 10:28
PROVIDERS: ATTEND Family Medicine
DX: F17.211 Nicotine dependence, cigarettes, in remission (principal); K44.9 Diaphragmatic hernia without obstruction or gangrene

== ENCOUNTER → 2020-08-17 | Outpatient (CLI) | payer MEDICARE, MEDICAID ==
--- NOTE | 2020-08-17 14:15 | REP ---
INDICATION: FAREED SCR MAMMO/Z12.31. COMPARISON: 08/11/2018 as well as other prior exams. TECHNIQUE: MLO and CC views bilateral breasts performed with tomosynthesis. FINDINGS: Mild scattered fibroglandular tissue is again seen bilaterally. There is a new 4 mm smoothly marginated nodule in the inferomedial right breast anterior to mid aspect. The remainder of the bilateral breasts appears unchanged with no other new mass or clustered microcalcifications. The Volpara volumetric breast density pattern is A. IMPRESSION: BIRADS/ACR category 0, incomplete. New 4 mm nodule inferomedial right breast. Recommend spot compression views and ultrasound to further evaluate. This patient's Tyrer-Cuzick lifetime breast cancer risk assessment score is 5.4%. This mammogram was interpreted with the aid of an FDA-approved computer-aided detection system. The patient states she had a clinical breast exam in over 1 year ago. The patient letter being requested is M0. RECOMMENDATION: Recommend spot compression views and ultrasound right breast. <Electronically signed by Wallace Antonio > 08/17/20 [id number]
--- NOTE | 2020-08-17 16:06 | DEXAMM ---
INDICATION: M80.0 AGE REL OSTEOPOROSIS W/O FX. COMPARISON: None. TECHNIQUE: Bone density was measured using dual-energy x-ray absorptiometry (DEXA). FINDINGS: AP SPINE L1-L4 BMD 1.521 g/cm2 Young Adult T-Score 2.6 Age Matched Z-Score is 4.2. LT FEMUR, TOTAL BMD 0.989 g/cm2 Young Adult T-Score -0.1 Age Matched Z-Score 1.1. LT NECK BMD 0.824 g/cm2 Young Adult T-Score -1.5 Age Matched Z-Score 0.0. RT FEMUR, TOTAL BMD 0.928 g/cm2 Young Adult T-Score -0.6 Age Matched Z-Score 0.6. RT NECK BMD 0.858 g/cm2 Young Adult T-Score -1.3 Age Matched Z-Score 0.2. IMPRESSION: There is normal bone density of the spine. There is low bone density of the left hip. There is low bone density of the right hip. FOLLOW-UP: Recommendation for the next bone density exam: 2 years. <Electronically signed by Wallace Antonio > 08/17/20 [id number]
== END ==
LOC: M WHC 12:52
PROVIDERS: ATTEND Family Medicine
DX: Z12.31 Encounter for screening mammogram for malignant neoplasm of breast (principal); M81.0 Age-related osteoporosis without current pathological fracture; N63.15 Unspecified lump in the right breast, overlapping quadrants

== ENCOUNTER → 2020-08-19 | Outpatient (REF) | payer MEDICARE ==
[2020-08-19 13:47] LABS: HEMATOCRIT 42.6 % (36.0-47.0); HEMOGLOBIN 13.1 g/dl (12.0-15.5); MEAN CORPUSCULAR HEMOGLOBIN 27.3 pg (27.0-33.0); MEAN CORPUSCULAR HGB CONC 30.8 g/dl (32.0-36.5); MEAN CORPUSCULAR VOLUME 88.8 fl (80.0-96.0); PLATELET COUNT, AUTOMATED 277 10^3/uL (150-450); WHITE BLOOD COUNT 7.6 10^3/uL (4.0-10.0)
[2020-08-19 14:12] LABS: CALCIUM LEVEL 9.4 MG/DL (8.8-10.2); CHOLESTEROL RISK RATIO 3.448 (<5); CREATININE FOR GFR 1.05 MG/DL (0.55-1.30); GLOMERULAR FILTRATION RATE 55.8 (>45); MAGNESIUM LEVEL 2.1 MG/DL (1.8-2.4); POTASSIUM SERUM 4.2 MEQ/L (3.5-5.1); URIC ACID 5.7 MG/DL (2.6-6.0)
[2020-08-19 14:16] LABS: TOTAL 25(OH) VITAMIN D 37.5 NG/ML (30.0-100.0)
[2020-08-19 14:17] LABS: PTH INTACT 57.7 PG/ML (18.5-88.0)
== END ==
LOC: M PLALAB 09:17
PROVIDERS: ATTEND Family Medicine
DX: Z00.00 Encounter for general adult medical examination without abnormal findings (principal); N18.31 Chronic kidney disease, stage 3a; E55.9 Vitamin D deficiency, unspecified; Z79.899 Other long term (current) drug therapy

== ENCOUNTER → 2020-08-24 | Outpatient (CLI) | payer MEDICARE, MEDICAID ==
--- NOTE | 2020-08-24 11:43 | REP ---
INDICATION: ADDITIONAL VIEWS RT BREAST. COMPARISON: Comparison mammography August 17, 2020 was BI-RADS category 0 because of a new 3 mm nodular density projecting medially on the craniocaudal view. Comparison mammography is also reviewed from August 11, 2018, and January 18, 2017. TECHNIQUE: Magnified focal spot-compression CC, mL, and MLO views of the right breast are obtained along with on magnified true mediolateral view of the right breast with 3D tomography. Targeted right breast sonography is carried out. This mammogram was interpreted with the aid of an FDA-approved computer-aided detection system. FINDINGS: Magnified focal spot-compression images of the right breast confirm the presence of 2 nodules. At 6 o'clock there is a previously identified cyst unchanged approximately 5 mm in diameter. In the 2-3 o'clock position medially in the right breast there is a well-circumscribed 3 mm nodular density. The right breast parenchyma is otherwise predominantly fat replaced as before. No other mammographic abnormality. The Volpara volumetric breast density pattern is a. Targeted ultrasound: Right breast imaging in the 2 o'clock position demonstrates a 0.3 x 0.4 x 0.3 cm simple cyst. At 6 o'clock, 3 cm from the nipple, there is a 0.5 cm cyst. The 2 o'clock lesion is felt to account for the new mammographic opacity. 6 o'clock cyst is unchanged. IMPRESSION: BIRADS/ACR category 2 benign right breast mammographic and sonographic findings. This patient's Tyrer-Cuzick lifetime breast cancer risk assessment score is 5.4%. RECOMMENDATION: Repeat screening mammography recommended 1 year (for women over 40). The patient letter being requested is M1. <Electronically signed by Selvin Fuentes > 08/24/20 [id number]
== END ==
LOC: M WHC 08:28
PROVIDERS: ATTEND Family Medicine
DX: N63.10 Unspecified lump in the right breast, unspecified quadrant (principal); R92.8 Other abnormal and inconclusive findings on diagnostic imaging of breast

== ENCOUNTER → 2020-11-04 | Outpatient (REF) | payer MEDICARE ==
[2020-11-04 12:54] LABS: CALCIUM LEVEL 9.1 MG/DL (8.8-10.2); CREATININE FOR GFR 1.05 MG/DL (0.55-1.30); GLOMERULAR FILTRATION RATE 55.8 (>45); POTASSIUM SERUM 3.9 MEQ/L (3.5-5.1)
== END ==
LOC: M SFHCPLAZ 10:09
PROVIDERS: ATTEND Family Medicine
DX: I12.9 Hypertensive chronic kidney disease with stage 1 through stage 4 chronic kidney disease, or unspecified chronic kidney disease (principal); N18.31 Chronic kidney disease, stage 3a

== ENCOUNTER → 2021-03-06 | Outpatient (CLI) | payer MEDICARE, MEDICAID ==
[~2021-03-06] MED LIST changes: +ERGO500029; -VITA50005
[2021-03-06 12:24] LABS: BASO # 0.1 10^3/uL (0.0-0.2); BASO % 1.1 % (0.0-1.0); EOS # 0.4 10^3/uL (0.0-0.5); EOS % 4.5 % (0.0-3.0); HEMATOCRIT 44.3 % (36.0-47.0); HEMOGLOBIN 14.1 g/dl (12.0-15.5); LYMPH % 23.8 % (24.0-44.0); MEAN CORPUSCULAR HEMOGLOBIN 28.4 pg (27.0-33.0); MEAN CORPUSCULAR HGB CONC 31.8 g/dl (32.0-36.5); MEAN CORPUSCULAR VOLUME 89.1 fl (80.0-96.0); MONO # 0.9 10^3/uL (0.0-0.8); MONO % 11.1 % (2.0-8.0); NEUTROPHILS # 4.8 10^3/uL (1.5-8.5); NEUTROPHILS % 58.9 % (36.0-66.0); PLATELET COUNT, AUTOMATED 284 10^3/uL (150-450); RED BLOOD COUNT 4.97 10^6/uL (4.00-5.40); WHITE BLOOD COUNT 8.2 10^3/uL (4.0-10.0)
[2021-03-06 12:52] LABS: ALBUMIN 3.8 GM/DL (3.2-5.2); BILIRUBIN,TOTAL 0.7 MG/DL (0.2-1.0); C REACTIVE PROTEIN QUANTITATIV 0.8 MG/DL (0.00-0.30); CALCIUM LEVEL 9.4 MG/DL (8.8-10.2); CREATININE FOR GFR 1.13 MG/DL (0.55-1.30); GLOMERULAR FILTRATION RATE 51.1 (>45); POTASSIUM SERUM 4.2 MEQ/L (3.5-5.1); TOTAL PROTEIN 7.3 GM/DL (6.4-8.2)
[2021-03-06 13:15] LABS: ERYTHROCYTE SEDIMENTATION RATE 10 mm/hr (0-30)
== END ==
LOC: M PLALAB 10:04
PROVIDERS: ATTEND Family Medicine
DX: M06.9 Rheumatoid arthritis, unspecified (principal); I10 Essential (primary) hypertension
CPT/HCPCS: 36415; 80053; 85025; 85652; 86140; G0463

== ENCOUNTER → 2021-05-04 | Outpatient (CLI) | payer MEDICARE, MEDICAID ==
[~2021-05-04] MED LIST changes: +ISOVUE-300 61% 50ML VIAL As Ordered ONE; +LIDOCAINE 1% MDV 20ML VIAL As Ordered ONE; +TRIAMCINOLONE ACETONIDE SUSP 40 MG/ML VIAL (J3301) As Ordered ONE
--- NOTE | 2021-05-04 15:50 | REP ---
INDICATION: OSTEOARTHRITIS LT FOOT/ANKLE. COMPARISON: None. TECHNIQUE: The procedure was performed under the direct supervision of Dr. Durham. The benefits and risks including but not limited to pain infection bleeding and anaphylaxis were explained to the patient and informed consent was obtained. The 2nd and 3rd tarsometatarsal joints were localized using fluoroscopic guidance. The skin was prepped and draped in a sterile fashion. 1% lidocaine was used as a local anesthetic. Using fluoroscopic guidance, and last image hold technology, a 25 gauge needle was inserted and advanced into the joint. 0.5 mL of Isovue-300 was injected to verify placement. 3 mL of a solution containing 2 mL of 1% lidocaine and 1 mL of Kenalog 40 mg was injected. The needle was then removed. The patient tolerated the procedure well and there were no immediate complications. Less than 6 seconds of fluoroscopy time was utilized for this procedure. FINDINGS: None IMPRESSION: Fluoroscopic guidance for left 2nd and 3rd tarsometatarsal joint injection. <Electronically signed by Miguel Graf > 05/04/21 1528 <Electronically signed by Rory Durham > 05/04/21 [id number]
== END ==
LOC: M RADPRO 12:50
PROVIDERS: ATTEND Orthopaedic Surgery
DX: M19.072 Primary osteoarthritis, left ankle and foot (principal)
CPT/HCPCS: 20600; 77002; J3301; Q9967

== ENCOUNTER → 2021-08-03 | Outpatient (CLI) | payer MEDICARE, MEDICAID, OTHER ==
[~2021-08-03] MED LIST changes: -ISOVUE-300 61% 50ML VIAL As Ordered ONE; -LIDOCAINE 1% MDV 20ML VIAL As Ordered ONE; -LISI20TA20 PO; +LISI20TA37 PO; -TRIAMCINOLONE ACETONIDE SUSP 40 MG/ML VIAL (J3301) As Ordered ONE
[2021-08-03 10:13] LABS: BASO # 0.1 10^3/uL (0.0-0.2); BASO % 1.1 % (0.0-1.0); EOS # 0.5 10^3/uL (0.0-0.5); EOS % 6.3 % (0.0-3.0); HEMATOCRIT 43.2 % (36.0-47.0); HEMOGLOBIN 13.8 g/dl (12.0-15.5); LYMPH # 2.2 10^3/uL (1.5-5.0); LYMPH % 25.8 % (24.0-44.0); MEAN CORPUSCULAR HEMOGLOBIN 28.6 pg (27.0-33.0); MEAN CORPUSCULAR HGB CONC 31.9 g/dl (32.0-36.5); MEAN CORPUSCULAR VOLUME 89.6 fl (80.0-96.0); MONO # 0.9 10^3/uL (0.0-0.8); MONO % 11.1 % (2.0-8.0); NEUTROPHILS # 4.7 10^3/uL (1.5-8.5); NEUTROPHILS % 55.2 % (36.0-66.0); PLATELET COUNT, AUTOMATED 289 10^3/uL (150-450); RED BLOOD COUNT 4.82 10^6/uL (4.00-5.40); WHITE BLOOD COUNT 8.5 10^3/uL (4.0-10.0)
[2021-08-03 11:09] LABS: ERYTHROCYTE SEDIMENTATION RATE 12 mm/hr (0-30)
== END ==
LOC: M PLALAB 08:51 → M LAB 08:51
PROVIDERS: ATTEND Family Medicine
DX: M16.9 Osteoarthritis of hip, unspecified (principal)

== ENCOUNTER → 2021-08-16 | Outpatient (CLI) | payer OTHER | LOC: M RAD 13:21 | PROVIDERS: ATTEND Family Medicine | DX: F17.211 Nicotine dependence, cigarettes, in remission (principal) ==

== ENCOUNTER → 2021-08-18 | Outpatient (CLI) | payer OTHER ==
[2021-08-18 11:05] LABS: CALCIUM LEVEL 9.5 MG/DL (8.8-10.2); CREATININE FOR GFR 1.07 MG/DL (0.55-1.30); GLOMERULAR FILTRATION RATE 54.5 (>45); POTASSIUM SERUM 4.2 MEQ/L (3.5-5.1)
== END ==
LOC: M PLALAB 08:25
PROVIDERS: ATTEND Family Medicine
DX: I10 Essential (primary) hypertension (principal)

== ENCOUNTER → 2021-09-01 | Outpatient (CLI) | payer OTHER | LOC: M WHC 08:52 | PROVIDERS: ATTEND Family Medicine | DX: Z12.31 Encounter for screening mammogram for malignant neoplasm of breast (principal) ==

== ENCOUNTER → 2021-10-10 | Outpatient (REF) | payer OTHER ==
[2021-10-10 13:41] LABS: AMORPHOUS SEDIMENT SMALL (NEGATIVE); APPEARANCE, URINE CLEAR (CLEAR); BACTERIA, URINE AUTO 1+ (NEGATIVE); BILIRUBIN, URINE AUTO NEGATIVE (NEGATIVE); BLOOD, URINE BLOOD NEGATIVE (NEGATIVE); COLOR, URINE YELLOW (YELLOW); GLUCOSE, URINE (UA) AUTO NEGATIVE (NEGATIVE); KETONE, URINE AUTO NEGATIVE (NEGATIVE); LEUKOCYTE ESTERASE, URINE AUTO TRACE (NEGATIVE); NITRITE, URINE AUTO NEGATIVE (NEGATIVE); PROTEIN, URINE AUTO NEGATIVE (NEGATIVE); RBC, URINE AUTO 3 /HPF (0-3); SPECIFIC GRAVITY URINE AUTO 1.016 (1.002-1.035); SQUAMOUS EPITHELIAL CELL UR AU 0 /HPF (0-6); UROBILINOGEN, URINE AUTO 0.2 mg/dL (0.0-2.0); WBC, URINE AUTO 16 /HPF (0-3)
== END ==
LOC: M SFHCPLAZ 13:14
PROVIDERS: ATTEND Family Medicine
DX: R32 Unspecified urinary incontinence (principal)

== ENCOUNTER → 2021-12-22 | Outpatient (CLI) | payer OTHER | LOC: M PLAIMG 08:16 | PROVIDERS: ATTEND Internal Medicine Rheumatology | DX: M06.09 Rheumatoid arthritis without rheumatoid factor, multiple sites (principal) ==

== ENCOUNTER → 2021-12-27 | Outpatient (CLI) | payer OTHER | LOC: M WHC 11:36 | PROVIDERS: ATTEND Orthopaedic Surgery | DX: M79.662 Pain in left lower leg (principal) ==

== ENCOUNTER → 2022-02-12 | Outpatient (CLI) | payer OTHER ==
[2022-02-12 10:57] LABS: HEMATOCRIT 41.9 % (36.0-47.0); HEMOGLOBIN 13.4 g/dl (12.0-15.5); MEAN CORPUSCULAR HEMOGLOBIN 28.5 pg (27.0-33.0); PLATELET COUNT, AUTOMATED 254 10^3/uL (150-450); RED BLOOD COUNT 4.71 10^6/uL (4.00-5.40)
[2022-02-12 11:11] LABS: INR 0.98; PROTHROMBIN TIME 13.4 SECONDS (12.7-14.5)
[2022-02-12 11:37] LABS: ALBUMIN 3.5 GM/DL (3.2-5.2); BILIRUBIN,TOTAL 0.3 MG/DL (0.2-1.0); CALCIUM LEVEL 9.2 MG/DL (8.8-10.2); CREATININE FOR GFR 1.05 MG/DL (0.55-1.30); GLOMERULAR FILTRATION RATE 55.7 (>45); POTASSIUM SERUM 4.3 MEQ/L (3.5-5.1); TOTAL PROTEIN 6.9 GM/DL (6.4-8.2)
[2022-02-12 11:40] LABS: ERYTHROCYTE SEDIMENTATION RATE 24 mm/hr (0-30)
== END ==
LOC: M RAD 09:42
PROVIDERS: ATTEND Orthopaedic Surgery
DX: M17.12 Unilateral primary osteoarthritis, left knee (principal); Z79.899 Other long term (current) drug therapy

== ENCOUNTER → 2022-08-14 | Outpatient (CLI) | payer OTHER, MEDICAID ==
[2022-08-14 15:59] LABS: BASO # 0.1 10^3/uL (0.0-0.2); BASO % 1.2 % (0.0-1.0); EOS # 0.3 10^3/uL (0.0-0.5); EOS % 3.1 % (0.0-3.0); HEMATOCRIT 44.8 % (36.0-47.0); LYMPH # 2.8 10^3/uL (1.5-5.0); LYMPH % 28.6 % (24.0-44.0); MEAN CORPUSCULAR HEMOGLOBIN 27.7 pg (27.0-33.0); MEAN CORPUSCULAR HGB CONC 31.3 g/dl (32.0-36.5); MEAN CORPUSCULAR VOLUME 88.5 fl (80.0-96.0); MONO # 1.2 10^3/uL (0.0-0.8); MONO % 12.7 % (2.0-8.0); NEUTROPHILS # 5.2 10^3/uL (1.5-8.5); NEUTROPHILS % 53.8 % (36.0-66.0); PLATELET COUNT, AUTOMATED 329 10^3/uL (150-450); RED BLOOD COUNT 5.06 10^6/uL (4.00-5.40); WHITE BLOOD COUNT 9.7 10^3/uL (4.0-10.0)
[2022-08-14 16:28] LABS: ALBUMIN 3.8 G/DL (3.2-5.2); BILIRUBIN,TOTAL 0.3 MG/DL (0.3-1.2); CALCIUM LEVEL 9.6 MG/DL (8.3-10.6); CHOLESTEROL RISK RATIO 3.43 (<5); CREATININE FOR GFR 1.04 MG/DL (0.55-1.30); GLOMERULAR FILTRATION RATE 56.1 (>45); HDL CHOLESTEROL 47.2 MG/DL (>40); LDL CHOLESTEROL 89.2 MG/DL (<100); TOTAL PROTEIN 7.3 G/DL (5.7-8.2)
[2022-08-14 17:32] LABS: HEMOGLOBIN A1c 5.8 % (4.0-6.0)
== END ==
LOC: M PLALAB 10:42
PROVIDERS: ATTEND Physician Assistant
DX: N18.31 Chronic kidney disease, stage 3a (principal); I12.9 Hypertensive chronic kidney disease with stage 1 through stage 4 chronic kidney disease, or unspecified chronic kidney disease; Z79.899 Other long term (current) drug therapy

== ENCOUNTER → 2022-09-04 | Outpatient (CLI) | payer OTHER, MEDICAID | LOC: M RAD 09:25 | PROVIDERS: ATTEND Physician Assistant | DX: Z87.891 Personal history of nicotine dependence (principal) ==

== ENCOUNTER → 2022-10-01 | Outpatient (CLI) | payer OTHER, MEDICAID | LOC: M WHC 13:12 | PROVIDERS: ATTEND Physician Assistant | DX: Z12.31 Encounter for screening mammogram for malignant neoplasm of breast (principal) ==

== ENCOUNTER → 2022-12-08 | Outpatient (CLI) | payer OTHER, MEDICAID ==
[~2022-12-08] MED LIST changes: -HYDR200T3 PO; +HYDR200T46 PO
== END ==
LOC: M RAD 12:25
PROVIDERS: ATTEND Chiropractor
DX: M51.36 Other intervertebral disc degeneration, lumbar region (principal); M50.33 Other cervical disc degeneration, cervicothoracic region; M99.01 Segmental and somatic dysfunction of cervical region; M99.03 Segmental and somatic dysfunction of lumbar region

== ENCOUNTER → 2022-12-25 | Outpatient (CLI) | payer OTHER, MEDICAID ==
[2022-12-25 18:11] LABS: BASO # 0.1 10^3/uL (0.0-0.2); BASO % 0.9 % (0.0-1.0); EOS # 0.4 10^3/uL (0.0-0.5); EOS % 4.2 % (0.0-3.0); HEMATOCRIT 39.6 % (36.0-47.0); HEMOGLOBIN 12.2 g/dl (12.0-15.5); LYMPH # 2.8 10^3/uL (1.5-5.0); LYMPH % 32.2 % (24.0-44.0); MEAN CORPUSCULAR HEMOGLOBIN 27.9 pg (27.0-33.0); MEAN CORPUSCULAR HGB CONC 30.8 g/dl (32.0-36.5); MEAN CORPUSCULAR VOLUME 90.4 fl (80.0-96.0); MONO # 0.9 10^3/uL (0.0-0.8); MONO % 10.1 % (2.0-8.0); NEUTROPHILS # 4.5 10^3/uL (1.5-8.5); NEUTROPHILS % 52.1 % (36.0-66.0); PLATELET COUNT, AUTOMATED 238 10^3/uL (150-450); RED BLOOD COUNT 4.38 10^6/uL (4.00-5.40); WHITE BLOOD COUNT 8.5 10^3/uL (4.0-10.0)
[2022-12-25 18:22] LABS: C REACTIVE PROTEIN QUANTITATIV 1.5 MG/DL (<1.0)
[2022-12-25 18:23] LABS: ALBUMIN 3.3 G/DL (3.2-5.2); BILIRUBIN,TOTAL 0.2 MG/DL (0.3-1.2); CALCIUM LEVEL 9.7 MG/DL (8.3-10.6); CREATININE FOR GFR 1.02 MG/DL (0.55-1.30); GLOMERULAR FILTRATION RATE 57.4 (>45); POTASSIUM SERUM 4.5 MMOL/L (3.5-5.1); TOTAL PROTEIN 6.3 G/DL (5.7-8.2)
[2022-12-25 18:35] LABS: ERYTHROCYTE SEDIMENTATION RATE 36 mm/hr (0-30)
== END ==
LOC: M WUC 12:20
PROVIDERS: ATTEND Internal Medicine Rheumatology
DX: M06.09 Rheumatoid arthritis without rheumatoid factor, multiple sites (principal); M89.49 Other hypertrophic osteoarthropathy, multiple sites; M79.7 Fibromyalgia; M19.041 Primary osteoarthritis, right hand; M19.042 Primary osteoarthritis, left hand

== ENCOUNTER 2023-01-01 09:45 | Emergency (ER) | payer OTHER, MEDICAID ==
[~2023-01-01] VITALS: Ht 152.4 cm; Wt 86.2 kg
[2023-01-01 12:16] VITALS: BP 149/71; TEMP 97.7; O2SAT 99
== END 2023-01-01 12:20 | disposition home or self-care (01) ==
LOC: M ED 09:45
DX: R60.9 Edema, unspecified (principal); I12.9 Hypertensive chronic kidney disease with stage 1 through stage 4 chronic kidney disease, or unspecified chronic kidney disease; N18.30 Chronic kidney disease, stage 3 unspecified; M06.9 Rheumatoid arthritis, unspecified; M79.7 Fibromyalgia; Z87.891 Personal history of nicotine dependence; Z88.8 Allergy status to other drugs, medicaments and biological substances; Z96.652 Presence of left artificial knee joint; Z79.899 Other long term (current) drug therapy

== ENCOUNTER → 2023-02-13 | Outpatient (CLI) | payer OTHER, MEDICAID ==
[2023-02-13 13:35] LABS: ALBUMIN 3.5 G/DL (3.2-5.2); CALCIUM LEVEL 9.1 MG/DL (8.3-10.6); CREATININE FOR GFR 1.1 MG/DL (0.55-1.30); GLOMERULAR FILTRATION RATE 52.6 (>45); PHOSPHORUS LEVEL 3.5 MG/DL (2.4-5.1); POTASSIUM SERUM 4.8 MMOL/L (3.5-5.1)
[2023-02-13 13:37] LABS: TOTAL 25(OH) VITAMIN D 33.7 NG/ML (20.0-100.0)
[2023-02-13 13:59] LABS: HEMOGLOBIN A1c 5.4 % (4.0-6.0)
[2023-02-13 14:01] LABS: CREATININE, URINE 136.8 MG/DL; MAU/CREAT RATIO 2.1 MCG/MG (0.0-30.0)
== END ==
LOC: M PLALAB 09:37
PROVIDERS: ATTEND Physician Assistant
DX: R73.09 Other abnormal glucose (principal); E55.9 Vitamin D deficiency, unspecified; R60.0 Localized edema

== ENCOUNTER → 2023-02-25 | Outpatient (CLI) | payer OTHER, MEDICAID | LOC: M WHC 12:53 | PROVIDERS: ATTEND Physician Assistant | DX: M81.0 Age-related osteoporosis without current pathological fracture (principal) ==

== ENCOUNTER → 2023-04-16 | Outpatient (CLI) | payer OTHER, MEDICAID ==
[2023-04-16 14:01] LABS: ALBUMIN 3.7 G/DL (3.2-5.2); CALCIUM LEVEL 9.3 MG/DL (8.3-10.6); CREATININE FOR GFR 1.08 MG/DL (0.55-1.30); GLOMERULAR FILTRATION RATE 53.5 (>45); MAGNESIUM LEVEL 2.1 MG/DL (1.8-2.4); PHOSPHORUS LEVEL 3.8 MG/DL (2.4-5.1); POTASSIUM SERUM 4.3 MMOL/L (3.5-5.1)
[2023-04-16 14:03] LABS: FREE T4 0.94 NG/DL (0.89-1.76); THYROID STIMULATING HORMONE 3.408 uIU/ML (0.55-4.78)
== END ==
LOC: M PLALAB 09:51
PROVIDERS: ATTEND Physician Assistant
DX: R06.02 Shortness of breath (principal); I10 Essential (primary) hypertension; R07.9 Chest pain, unspecified; R53.83 Other fatigue

== ENCOUNTER 2023-06-14 08:23 | Outpatient (RCR) | payer OTHER, MEDICAID | END 2023-06-16 | LOC: M OT 08:23 | PROVIDERS: ATTEND Internal Medicine Rheumatology | DX: M15.0 Primary generalized (osteo)arthritis (principal); M06.09 Rheumatoid arthritis without rheumatoid factor, multiple sites ==

== ENCOUNTER → 2023-07-22 | Outpatient (CLI) | payer OTHER, MEDICAID | LOC: M SOG 07:54 | PROVIDERS: ATTEND Orthopaedic Surgery | DX: M54.50 Low back pain, unspecified (principal) ==

== ENCOUNTER → 2023-08-06 | Outpatient (CLI) | payer OTHER, MEDICAID ==
[2023-08-06 18:16] LABS: BASO # 0.1 10^3/uL (0.0-0.2); BASO % 0.8 % (0.0-1.0); EOS # 0.5 10^3/uL (0.0-0.5); EOS % 4.7 % (0.0-3.0); HEMATOCRIT 41.9 % (36.0-47.0); HEMOGLOBIN 13.3 g/dl (12.0-15.5); LYMPH # 2.8 10^3/uL (1.5-5.0); LYMPH % 26.2 % (24.0-44.0); MEAN CORPUSCULAR HEMOGLOBIN 28.4 pg (27.0-33.0); MEAN CORPUSCULAR HGB CONC 31.7 g/dl (32.0-36.5); MEAN CORPUSCULAR VOLUME 89.5 fl (80.0-96.0); MONO # 1.1 10^3/uL (0.0-0.8); MONO % 10.8 % (2.0-8.0); PLATELET COUNT, AUTOMATED 276 10^3/uL (150-450); RED BLOOD COUNT 4.68 10^6/uL (4.00-5.40); WHITE BLOOD COUNT 10.5 10^3/uL (4.0-10.0)
[2023-08-06 18:45] LABS: ALBUMIN 3.4 G/DL (3.2-5.2); BILIRUBIN,TOTAL 0.2 MG/DL (0.3-1.2); CALCIUM LEVEL 9.2 MG/DL (8.3-10.6); CREATININE FOR GFR 1.29 MG/DL (0.55-1.30); FREE T4 0.96 NG/DL (0.89-1.76); GLOMERULAR FILTRATION RATE 43.6 (>45); POTASSIUM SERUM 4.8 MMOL/L (3.5-5.1); THYROID STIMULATING HORMONE 1.85 uIU/ML (0.55-4.78); TOTAL PROTEIN 6.6 G/DL (5.7-8.2)
== END ==
LOC: M PLAIMG 15:10
PROVIDERS: ATTEND Physician Assistant
DX: R06.09 Other forms of dyspnea (principal)

== ENCOUNTER → 2023-08-19 | Outpatient (CLI) | payer OTHER, MEDICAID | LOC: M CARPUL 08:30 | PROVIDERS: ATTEND Physician Assistant | DX: R06.02 Shortness of breath (principal) ==

== ENCOUNTER → 2023-09-17 | Outpatient (REF) | payer OTHER, MEDICAID ==
[2023-09-17 14:02] LABS: BASO # 0.1 10^3/uL (0.0-0.2); BASO % 1.2 % (0.0-1.0); EOS # 0.4 10^3/uL (0.0-0.5); EOS % 5.1 % (0.0-3.0); HEMATOCRIT 40.2 % (36.0-47.0); HEMOGLOBIN 12.6 g/dl (12.0-15.5); LYMPH % 23.3 % (24.0-44.0); MEAN CORPUSCULAR HEMOGLOBIN 28.5 pg (27.0-33.0); MEAN CORPUSCULAR HGB CONC 31.3 g/dl (32.0-36.5); MONO # 0.9 10^3/uL (0.0-0.8); MONO % 9.8 % (2.0-8.0); NEUTROPHILS # 5.2 10^3/uL (1.5-8.5); NEUTROPHILS % 60.1 % (36.0-66.0); PLATELET COUNT, AUTOMATED 294 10^3/uL (150-450); RED BLOOD COUNT 4.42 10^6/uL (4.00-5.40); WHITE BLOOD COUNT 8.6 10^3/uL (4.0-10.0)
[2023-09-17 14:06] LABS: C REACTIVE PROTEIN QUANTITATIV 1.4 MG/DL (<1.0)
[2023-09-17 14:08] LABS: ALBUMIN 3.5 G/DL (3.2-5.2); BILIRUBIN,TOTAL 0.3 MG/DL (0.3-1.2); CALCIUM LEVEL 8.8 MG/DL (8.3-10.6); GLOMERULAR FILTRATION RATE 58.5 (>45); POTASSIUM SERUM 4.8 MMOL/L (3.5-5.1); TOTAL PROTEIN 6.9 G/DL (5.7-8.2)
[2023-09-17 14:10] LABS: TOTAL 25(OH) VITAMIN D 50.1 NG/ML (20.0-100.0)
[2023-09-17 15:03] LABS: ERYTHROCYTE SEDIMENTATION RATE 57 mm/hr (0-30)
== END ==
LOC: M SFHCRHEU 09:03
PROVIDERS: ATTEND Internal Medicine Rheumatology
DX: M06.09 Rheumatoid arthritis without rheumatoid factor, multiple sites (principal); M89.49 Other hypertrophic osteoarthropathy, multiple sites; M79.7 Fibromyalgia; H04.123 Dry eye syndrome of bilateral lacrimal glands

== ENCOUNTER 2023-10-26 16:33 | Inpatient (IN) | payer OTHER, MEDICAID ==
[~2023-10-26] VITALS: Ht 152.4 cm; Wt 91.7 kg
[2023-10-26] MEDS ORDERED: IRBE150T27 PO (16:50)
[2023-10-26] MEDS ORDERED: TORS10TA3 PO (16:50)
[2023-10-26] MEDS ORDERED: CETI-24 PO (16:50)
[2023-10-26] MEDS ORDERED: BISO5TAB14 PO (16:50)
[2023-10-26] MEDS ORDERED: GABA600T4 PO (16:51)
[2023-10-26 17:37] LABS: BASO # 0.1 10^3/uL (0.0-0.2); EOS # 0.4 10^3/uL (0.0-0.5); EOS % 3.3 % (0.0-3.0); HEMATOCRIT 33.4 % (36.0-47.0); HEMOGLOBIN 10.9 g/dl (12.0-15.5); LYMPH # 3.3 10^3/uL (1.5-5.0); LYMPH % 29.8 % (24.0-44.0); MEAN CORPUSCULAR HEMOGLOBIN 29.1 pg (27.0-33.0); MEAN CORPUSCULAR HGB CONC 32.6 g/dl (32.0-36.5); MEAN CORPUSCULAR VOLUME 89.1 fl (80.0-96.0); MONO # 1.2 10^3/uL (0.0-0.8); NEUTROPHILS # 6.1 10^3/uL (1.5-8.5); NEUTROPHILS % 54.5 % (36.0-66.0); PLATELET COUNT, AUTOMATED 312 10^3/uL (150-450); RED BLOOD COUNT 3.75 10^6/uL (4.00-5.40); WHITE BLOOD COUNT 11.1 10^3/uL (4.0-10.0)
[2023-10-26 17:54] LABS: CPK CREATINE PHOSPHOKINASE 143 U/L (34-145)
[2023-10-26 17:55] LABS: ALBUMIN 3.3 G/DL (3.2-5.2); ALKALINE PHOSPHATASE 151 U/L (46-116); ALT/SGPT 26 U/L (7.0-40); AST/SGOT 22 U/L (<34); BILIRUBIN,DIRECT < 0.1 MG/DL (<0.4); BILIRUBIN,TOTAL 0.2 MG/DL (0.3-1.2); BLOOD UREA NITROGEN 35 MG/DL (9-23); CALCIUM LEVEL 9.2 MG/DL (8.3-10.6); CARBON DIOXIDE LEVEL 24 MMOL/L (20-31); CHLORIDE LEVEL 105 MMOL/L (98-107); CK-MB VALUE MASS 2.3 NG/ML (<3.6); CREATININE FOR GFR 1.34 MG/DL (0.55-1.30); GLOMERULAR FILTRATION RATE 41.7 (>45); GLUCOSE, FASTING 117 MG/DL (74-106); SODIUM LEVEL 138 MMOL/L (136-145); TOTAL PROTEIN 6.5 G/DL (5.7-8.2)
[2023-10-26 17:58] LABS: THYROID STIMULATING HORMONE 2.474 uIU/ML (0.55-4.78)
[2023-10-26] MEDS ORDERED: ISOVUE-370 76% 100ML VIAL As Ordered ONE (18:07)
[2023-10-26] MEDS ORDERED: ACET-683 PO (21:13)
[2023-10-26] MEDS ORDERED: HOME MED LIST COMPLETE! XX SCH (21:15)
[2023-10-27] VITALS: BP 119/56; TEMP 97.2; O2SAT 94
[2023-10-27] MEDS: NS 1,000 ML IV SCH (00:38)
[2023-10-27 04:19] VITALS: BP 108/53; TEMP 96.7; O2SAT 97
[2023-10-27] MEDS: HEPARIN SOD (PORCINE) 5000UNITS/ML 1ML VIAL/SYRINGE SC SCH (05:50)
[2023-10-27 07:51] VITALS: BP 122/60; TEMP 96.8; O2SAT 96
[2023-10-27] MEDS: DULoxetine 30MG CAPSULE (CYMBALTA) PO SCH (08:01)
[2023-10-27 08:03] LABS: BASO # 0.1 10^3/uL (0.0-0.2); BASO % 0.7 % (0.0-1.0); EOS # 0.4 10^3/uL (0.0-0.5); EOS % 4.8 % (0.0-3.0); HEMATOCRIT 31.3 % (36.0-47.0); LYMPH # 2.6 10^3/uL (1.5-5.0); LYMPH % 29.6 % (24.0-44.0); MEAN CORPUSCULAR HEMOGLOBIN 28.5 pg (27.0-33.0); MEAN CORPUSCULAR HGB CONC 31.9 g/dl (32.0-36.5); MEAN CORPUSCULAR VOLUME 89.2 fl (80.0-96.0); MONO # 0.8 10^3/uL (0.0-0.8); MONO % 9.6 % (2.0-8.0); NEUTROPHILS # 4.8 10^3/uL (1.5-8.5); NEUTROPHILS % 55.1 % (36.0-66.0); PLATELET COUNT, AUTOMATED 256 10^3/uL (150-450); RED BLOOD COUNT 3.51 10^6/uL (4.00-5.40); WHITE BLOOD COUNT 8.7 10^3/uL (4.0-10.0)
[2023-10-27 08:27] LABS: CALCIUM LEVEL 8.4 MG/DL (8.3-10.6); CREATININE FOR GFR 1.05 MG/DL (0.55-1.30); GLOMERULAR FILTRATION RATE 55.3 (>45); POTASSIUM SERUM 4.5 MMOL/L (3.5-5.1)
[2023-10-27] MEDS ORDERED: TORSEMIDE 10 MG TABLET PO SCH (09:00)
[2023-10-27] MEDS: ACETAMINOPHEN TAB 650MG DOSE (2X325MG) PO PRN (09:23)
[2023-10-27 15:55] VITALS: BP 121/57; TEMP 97.8; O2SAT 95
[2023-10-27 19:58] VITALS: BP 148/63; TEMP 97.4; O2SAT 95
[2023-10-27] MEDS: VERAPAMIL 40 MG TAB PO SCH (20:36)
[2023-10-28 00:32] VITALS: BP 124/57; TEMP 97.5; O2SAT 97
[2023-10-28 04:25] VITALS: BP 133/60; TEMP 97.3; O2SAT 96
[2023-10-28 07:47] VITALS: BP_SYST 127; BP_SYST 129; BP_SYST 136; BP_DIAS 58; BP_DIAS 60; BP_DIAS 63; TEMP 97.5; O2SAT 96
[2023-10-28 08:12] LABS: CALCIUM LEVEL 8.6 MG/DL (8.3-10.6); CHOLESTEROL RISK RATIO 4.41 (<5); GLOMERULAR FILTRATION RATE 58.5 (>45); HDL CHOLESTEROL 31.5 MG/DL (>40); LDL CHOLESTEROL 78.9 MG/DL (<100); MAGNESIUM LEVEL 1.9 MG/DL (1.8-2.4); NON-HDL-C 107.5 MG/DL; POTASSIUM SERUM 4.7 MMOL/L (3.5-5.1)
[2023-10-28 09:33] VITALS: BP 155/83
[2023-10-28] MEDS ORDERED: VERA40TA PO (10:57)
[2023-10-28] MEDS ORDERED: FURO20TA2 PO (11:00)
== END 2023-10-28 12:45 | disposition home or self-care (01) | DRG 309 ==
LOC: M ED 16:33 → M ED INP 22:30 → M PCU 10-27 00:21
PROVIDERS: ADMIT Family Medicine; ATTEND Student in an Organized Health Care Education/Training Program
PROC: B246ZZZ Ultrasonography of Right and Left Heart (ICD-10-PCS; principal; 2023-10-27)
DX: I49.3 Ventricular premature depolarization (principal); N17.9 Acute kidney failure, unspecified; I47.19 Other supraventricular tachycardia; I12.9 Hypertensive chronic kidney disease with stage 1 through stage 4 chronic kidney disease, or unspecified chronic kidney disease; N18.32 Chronic kidney disease, stage 3b; M06.9 Rheumatoid arthritis, unspecified; M17.11 Unilateral primary osteoarthritis, right knee; M47.9 Spondylosis, unspecified; E55.9 Vitamin D deficiency, unspecified; G57.91 Unspecified mononeuropathy of right lower limb; M85.80 Other specified disorders of bone density and structure, unspecified site; F32.A Depression, unspecified; F41.9 Anxiety disorder, unspecified; M79.7 Fibromyalgia; I95.2 Hypotension due to drugs; T44.7X5A Adverse effect of beta-adrenoreceptor antagonists, initial encounter; D64.9 Anemia, unspecified; I89.0 Lymphedema, not elsewhere classified; Z87.891 Personal history of nicotine dependence; R42 Dizziness and giddiness; R00.1 Bradycardia, unspecified; Z96.653 Presence of artificial knee joint, bilateral; Z90.49 Acquired absence of other specified parts of digestive tract; Z86.010 Personal history of colon polyps

== ENCOUNTER → 2023-11-06 | Outpatient (CLI) | payer OTHER, MEDICAID ==
[~2023-11-06] MED LIST changes: +ACET-683 PO; +BISO5TAB14 PO; +CETI-24 PO; +FURO20TA2 PO; +IRBE150T27 PO; +TORS10TA3 PO; +VERA40TA PO
[2023-11-06 18:33] LABS: ALBUMIN 3.4 G/DL (3.2-5.2); CREATININE FOR GFR 1.19 MG/DL (0.55-1.30); GLOMERULAR FILTRATION RATE 47.9 (>45); PHOSPHORUS LEVEL 4.4 MG/DL (2.4-5.1); POTASSIUM SERUM 4.5 MMOL/L (3.5-5.1)
== END ==
LOC: M PLALAB 15:24
PROVIDERS: ATTEND Physician Assistant
DX: R60.0 Localized edema (principal); R06.02 Shortness of breath; N18.31 Chronic kidney disease, stage 3a

== ENCOUNTER → 2023-12-17 | Outpatient (CLI) | payer OTHER, MEDICAID ==
[2023-12-17 11:06] LABS: CALCIUM LEVEL 9.3 MG/DL (8.3-10.6); CREATININE FOR GFR 1.08 MG/DL (0.55-1.30); GLOMERULAR FILTRATION RATE 53.5 (>45); POTASSIUM SERUM 3.9 MMOL/L (3.5-5.1)
== END ==
LOC: M PLALAB 08:42
PROVIDERS: ATTEND Physician Assistant
DX: I10 Essential (primary) hypertension (principal)

== ENCOUNTER → 2024-04-08 | Outpatient (REF) | payer OTHER, MEDICAID ==
[~2024-04-08] MED LIST changes: +GABA-1490 PO; -GABA600T4 PO
[2024-04-08 14:28] LABS: BASO # 0.1 10^3/uL (0.0-0.2); BASO % 1.2 % (0.0-1.0); EOS # 0.4 10^3/uL (0.0-0.5); EOS % 3.8 % (0.0-3.0); HEMATOCRIT 44.9 % (36.0-47.0); HEMOGLOBIN 14.3 g/dl (12.0-15.5); LYMPH # 2.3 10^3/uL (1.5-5.0); LYMPH % 23.8 % (24.0-44.0); MEAN CORPUSCULAR HGB CONC 31.8 g/dl (32.0-36.5); MEAN CORPUSCULAR VOLUME 84.7 fl (80.0-96.0); MONO % 10.2 % (2.0-8.0); NEUTROPHILS # 5.8 10^3/uL (1.5-8.5); NEUTROPHILS % 60.6 % (36.0-66.0); PLATELET COUNT, AUTOMATED 344 10^3/uL (150-450); WHITE BLOOD COUNT 9.5 10^3/uL (4.0-10.0)
[2024-04-08 14:35] LABS: ERYTHROCYTE SEDIMENTATION RATE 67 mm/hr (0-30)
[2024-04-08 16:06] LABS: ALBUMIN 3.6 G/DL (3.2-5.2); BILIRUBIN,TOTAL 0.3 MG/DL (0.3-1.2); C REACTIVE PROTEIN QUANTITATIV 0.8 MG/DL (<1.0); CALCIUM LEVEL 9.7 MG/DL (8.3-10.6); CREATININE FOR GFR 1.03 MG/DL (0.55-1.30); GLOMERULAR FILTRATION RATE 56.4 (>39); POTASSIUM SERUM 4.5 MMOL/L (3.5-5.1); TOTAL PROTEIN 7.5 G/DL (5.7-8.2)
== END ==
LOC: M SFHCRHEU 10:04
PROVIDERS: ATTEND Internal Medicine Rheumatology
DX: M06.09 Rheumatoid arthritis without rheumatoid factor, multiple sites (principal); M89.49 Other hypertrophic osteoarthropathy, multiple sites; M79.7 Fibromyalgia; H04.123 Dry eye syndrome of bilateral lacrimal glands

== ENCOUNTER → 2024-05-08 | Outpatient (REF) | payer OTHER, MEDICAID ==
[2024-05-08 13:07] LABS: IMMUNOGLOBULIN A 301.6 MG/DL (40-350); IMMUNOGLOBULIN G 1265 MG/DL (650-1600)
[2024-05-09 11:53] LABS: PROTEIN CREATININE RATIO 114 mg/g creat (24-184); T PROTEIN CREATININE RATIO 0.114 (0.024-0.184); UPEP CREATININE 70 mg/dL (20-275); UPEP TOTAL PROTEIN 8 mg/dL (5-24)
[2024-05-09 23:43] LABS: PROTEIN, TOTAL SO 7.2 g/dL (6.1-8.1)
[2024-05-11 14:17] LABS: QuantiFERON-TB Gold Plus NEGATIVE (NEGATIVE)
== END ==
LOC: M SFHCRHEU 10:27
PROVIDERS: ATTEND Internal Medicine Rheumatology
DX: M06.09 Rheumatoid arthritis without rheumatoid factor, multiple sites (principal); M89.49 Other hypertrophic osteoarthropathy, multiple sites; M79.7 Fibromyalgia; H04.123 Dry eye syndrome of bilateral lacrimal glands; R70.0 Elevated erythrocyte sedimentation rate

== ENCOUNTER → 2024-08-18 | Outpatient (REF) | payer OTHER, MEDICAID ==
[2024-08-18 15:27] LABS: C REACTIVE PROTEIN QUANTITATIV 0.76 MG/DL (<1.0)
[2024-08-18 15:28] LABS: ALBUMIN 3.6 G/DL (3.2-5.2); BILIRUBIN,TOTAL 0.2 MG/DL (0.3-1.2); CALCIUM LEVEL 9.4 MG/DL (8.3-10.6); CREATININE FOR GFR 1.08 MG/DL (0.55-1.30); GLOMERULAR FILTRATION RATE 53.4 (>39); POTASSIUM SERUM 4.6 MMOL/L (3.5-5.1); TOTAL PROTEIN 7.4 G/DL (5.7-8.2)
[2024-08-18 15:32] LABS: BASO # 0.1 10^3/uL (0.0-0.2); BASO % 1.1 % (0.0-1.0); EOS # 0.4 10^3/uL (0.0-0.5); EOS % 4.3 % (0.0-3.0); HEMATOCRIT 46.1 % (36.0-47.0); HEMOGLOBIN 14.5 g/dl (12.0-15.5); LYMPH # 2.2 10^3/uL (1.5-5.0); LYMPH % 23.6 % (24.0-44.0); MEAN CORPUSCULAR HEMOGLOBIN 28.2 pg (27.0-33.0); MEAN CORPUSCULAR HGB CONC 31.5 g/dl (32.0-36.5); MEAN CORPUSCULAR VOLUME 89.7 fl (80.0-96.0); MONO % 10.1 % (2.0-8.0); NEUTROPHILS # 5.7 10^3/uL (1.5-8.5); NEUTROPHILS % 60.6 % (36.0-66.0); PLATELET COUNT, AUTOMATED 307 10^3/uL (150-450); RED BLOOD COUNT 5.14 10^6/uL (4.00-5.40); WHITE BLOOD COUNT 9.4 10^3/uL (4.0-10.0)
[2024-08-18 15:38] LABS: ERYTHROCYTE SEDIMENTATION RATE 57 mm/hr (0-30)
== END ==
LOC: M SFHCRHEU 09:53
PROVIDERS: ATTEND Internal Medicine Rheumatology
DX: M06.09 Rheumatoid arthritis without rheumatoid factor, multiple sites (principal); M89.49 Other hypertrophic osteoarthropathy, multiple sites; M79.7 Fibromyalgia; H04.123 Dry eye syndrome of bilateral lacrimal glands

== ENCOUNTER → 2024-10-26 | Outpatient (CLI) | payer OTHER, MEDICAID ==
[2024-10-26 14:08] LABS: ALBUMIN 3.7 G/DL (3.2-5.2); BILIRUBIN,TOTAL 0.4 MG/DL (0.3-1.2); CALCIUM LEVEL 9.7 MG/DL (8.3-10.6); CHOLESTEROL RISK RATIO 4.01 (<5); CREATININE FOR GFR 1.09 MG/DL (0.55-1.30); FREE T4 1.22 NG/DL (0.89-1.76); GLOMERULAR FILTRATION RATE 54.7 (>39); HDL CHOLESTEROL 48.6 MG/DL (>40); LDL CHOLESTEROL 116.2 MG/DL (<100); NON-HDL-C 146.4 MG/DL; PERCENT SATURATION 15.5 % (13.2-45.0); POTASSIUM SERUM 4.3 MMOL/L (3.5-5.1); THYROID STIMULATING HORMONE 2.427 uIU/ML (0.55-4.78); TOTAL PROTEIN 7.5 G/DL (5.7-8.2)
[2024-10-26 14:10] LABS: FERRITIN 55.5 NG/ML (7.3-270.7)
[2024-10-26 14:17] LABS: BASO # 0.1 10^3/uL (0.0-0.2); EOS # 0.4 10^3/uL (0.0-0.5); EOS % 4.2 % (0.0-3.0); HEMATOCRIT 45.1 % (36.0-47.0); HEMOGLOBIN 14.3 g/dl (12.0-15.5); LYMPH # 2.6 10^3/uL (1.5-5.0); LYMPH % 24.7 % (24.0-44.0); MEAN CORPUSCULAR HEMOGLOBIN 28.3 pg (27.0-33.0); MEAN CORPUSCULAR HGB CONC 31.7 g/dl (32.0-36.5); MEAN CORPUSCULAR VOLUME 89.1 fl (80.0-96.0); MONO # 1.3 10^3/uL (0.0-0.8); MONO % 12.4 % (2.0-8.0); NEUTROPHILS % 57.3 % (36.0-66.0); PLATELET COUNT, AUTOMATED 300 10^3/uL (150-450); RED BLOOD COUNT 5.06 10^6/uL (4.00-5.40); WHITE BLOOD COUNT 10.4 10^3/uL (4.0-10.0)
[2024-10-26 14:18] LABS: HEMATOCRIT 44.8 % (36.0-47.0)
[2024-10-26 14:38] LABS: CREATININE, URINE 40.7 MG/DL; MALB URINE SIEMENS < 3.0 MG/L
== END ==
LOC: M PLALAB 10:04
PROVIDERS: ATTEND Student in an Organized Health Care Education/Training Program
DX: D64.9 Anemia, unspecified (principal); E78.00 Pure hypercholesterolemia, unspecified; I10 Essential (primary) hypertension; E55.9 Vitamin D deficiency, unspecified; Z13.220 Encounter for screening for lipoid disorders

== ENCOUNTER → 2025-03-05 | Outpatient (CLI) | payer OTHER | LOC: M RAD 10:22 | PROVIDERS: ATTEND Student in an Organized Health Care Education/Training Program | DX: Z12.2 Encounter for screening for malignant neoplasm of respiratory organs (principal); R91.8 Other nonspecific abnormal finding of lung field; F17.210 Nicotine dependence, cigarettes, uncomplicated ==

== ENCOUNTER → 2025-03-05 | Outpatient (CLI) | payer OTHER, MEDICAID | LOC: M RAD 16:32 | PROVIDERS: ATTEND Family Medicine | DX: Z53.9 Procedure and treatment not carried out, unspecified reason (principal) ==

== ENCOUNTER → 2025-03-10 | Outpatient (REF) | payer OTHER, MEDICAID | LOC: M SFHCPLAZ 16:17 | PROVIDERS: ATTEND Family Medicine | DX: Z53.9 Procedure and treatment not carried out, unspecified reason (principal); N18.31 Chronic kidney disease, stage 3a ==

== ENCOUNTER → 2025-03-11 | Outpatient (CLI) | payer OTHER, MEDICAID ==
[2025-03-11 10:46] LABS: CALCIUM LEVEL 9.1 MG/DL (8.3-10.6); CARBON DIOXIDE LEVEL 29.0 MMOL/L (20-31); CHLORIDE LEVEL 104.0 MMOL/L (98-107); CREATININE FOR GFR 1.09 MG/DL (0.55-1.30); GLOMERULAR FILTRATION RATE 54.3 (>39); POTASSIUM SERUM 4.6 MMOL/L (3.5-5.1); SODIUM LEVEL 141.0 MMOL/L (136-145)
== END ==
LOC: M PLALAB 09:02
PROVIDERS: ATTEND Family Medicine
DX: N18.31 Chronic kidney disease, stage 3a (principal)

== ENCOUNTER → 2025-03-22 | Outpatient (CLI) | payer OTHER, MEDICAID ==
[~2025-03-22] MED LIST changes: +ISOVUE-370 76% 100 ML VIAL ONE
== END ==
LOC: M PLAIMG 10:45
PROVIDERS: ATTEND Family Medicine
DX: R91.1 Solitary pulmonary nodule (principal)
CPT/HCPCS: 71260; Q9967